=== PATIENT | male | born 1955 | race Caucasian/White ===

== ENCOUNTER 2024-10-01 00:31 | Inpatient (IN) | payer MEDICARE, MEDICAID, SELFPAY ==
[2024-10-01] VITALS (13 sets, daily range): BP systolic 97–120; BP diastolic 58–76; PULSE 78–104; RESP 14–20; TEMP 36.6–37.1; O2SAT 90–97; BMI 30.7
--- NOTE | 2024-10-01 02:19 | PD.EDRME ---
Rapid Medical Screening Exam RME Arrival date/time: 10/01/24 00:31 Chief Complaint: Abdominal Pain Time Seen by Provider: 10/01/24 01:52 Vital signs: Vital Signs Temperature 98.5 F 10/01/24 00:42 Pulse Rate 104 H 10/01/24 00:42 Respiratory Rate 20 10/01/24 00:42 Blood Pressure 110/73 10/01/24 00:42 Pulse Oximetry (%) 95 10/01/24 00:42 Oxygen Delivery Method Nasal Cannula 10/01/24 00:42 Oxygen Flow Rate 5 10/01/24 00:42 Vital signs reviewed by provider: Yes RME Narrative: 69-year-old male presents to the ED with a complaint of generalized abdominal pain for the past 4 days. He has also had associated diarrhea. He denies any fever or chills, vomiting, dysuria or frequency. He states he wants to vomit but is unable to. He has been afraid to eat for the past few days. He is also not taking any of his medications for newly diagnosed diabetes because he is not eating. He has been taking his blood sugar and it has been ranging from the high 80s to the high 120s. He has been told he has a hiatal hernia. Urinalysis and labs ordered. No imaging ordered at this time as the patient will be transferred to the main ED for evaluation and imaging studies can be ordered at that time. I have greeted and performed a focused initial assessment of this patient. A comprehensive ED assessment and evaluation of the patient, analysis of all test results, and completion of the medical decision making process will be conducted by additional ED providers.
[2024-10-01 02:42] LABS: Basophils # (Auto) 0.1 Thou/mm3 (0.0-0.2); Basophils % (Auto) 0 % (0-2.5); Eosinophils # (Auto) 0.1 Thou/mm3 (0.0-0.5); Eosinophils % (Auto) 0 % (0-10); Hematocrit 42.2 % (41.0-53.0); Hemoglobin 15.2 g/dL (13.5-16.0); Immature Granulocytes % (Auto) 1 % (0-0); Immature Granulocytes Auto 0.24 Thou/mm3 (0.00-0.00); Lymphocytes # (Auto) 0.9 Thou/mm3 (1.0-4.8); Lymphocytes % (Auto) 3 % (10-50); Mean Corpuscular Hemoglobin 35.8 pg (25.0-35.0); Mean Corpuscular Volume 100 fL (80-100); Monocytes # (Auto) 5.3 Thou/mm3 (0.0-0.8); Monocytes % (Auto) 18 % (0-12); Neutrophils # (Auto) 22.9 Thou/mm3 (1.8-7.7); Neutrophils % (Auto) 78 % (37-80); Nucleated Red Blood Cell % 0 /100 WBC (0); Platelet Count 231 Thou/mm3 (140-440); RDW Standard Deviation 52.6 fL (35.1-43.9); Red Blood Count 4.24 Miln/mm3 (4.50-5.90); White Blood Count 29.4 Thou/mm3 (3.8-10.6)
[2024-10-01 02:59] LABS: Alanine Aminotransferase 22 U/L (10-49); Albumin/Globulin Ratio 1.9 (1.2-2.2); Alkaline Phosphatase 135 U/L (46-116); Amylase 32 U/L (30-118); Anion Gap 9 (7-16); Aspartate Amino Transferase 26 U/L (0-34); BUN/Creatinine Ratio 16 Ratio (12-20); Blood Urea Nitrogen 27 mg/dL (9-23); Calcium 9.7 mg/dL (8.3-10.6); Calcium (Corrected) 9.7 mg/dL (8.5-10.1); Carbon Dioxide 25.3 mMol/L (20.0-31.0); Chloride 96 mMol/L (98-107); Creatinine (Component) 1.7 mg/dL (0.6-1.3); Estimated Creatinine Clearance 45.7 mL/min (>60); Globulin 2.7 gm/dL (2.3-3.5); Glucose 140 mg/dL (74-106); Lipase 29 U/L (12-53); Osmolality,Calculated 267 (275-295); Potassium 3.7 mMol/L (3.4-5.1); Sodium 130 mMol/L (136-145); Total Protein 7.7 gm/dL (5.7-8.2); eGFR 43 See Note
--- NOTE | 2024-10-01 03:24 | EKG_ITS ---
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
--- NOTE | 2024-10-01 03:24 | XR_ITS ---
Examination: AP chest single view TECHNIQUE: AP portable upright chest single view Exam date and time: October 01, 2024, 0442 hours Comparison 02/21/2024 INDICATIONS: Sepsis protocol FINDINGS: Normal heart size. No pneumonia or pulmonary edema. Right internal jugular Port-A-Cath tip SVC satisfactory position IMPRESSION: No pneumonia or pulmonary edema
--- NOTE | 2024-10-01 03:29 | XR_ITS ---
Examination: CT abdomen and pelvis without contrast. Coronal 3-D reconstructions. Sagittal 2-D reconstructions. Date and time of exam:October 01, 2024 0427 hours INDICATIONS: Onset abdominal pain today CTDI: vol (mGy): 9.95 DLP: (mGycm): 668 Technique: Axial images of the abdomen have been obtained, 3 mm slice thickness Intravenous contrast material has not been administered. Low dose protocols were performed. One or more of the following dose reduction techniques were used; automated exposure control, adjustment of the mA and/or KV according to patient size, use of iterative reconstruction technique. Findings: Diffuse fatty infiltration throughout the liver no focal liver or splenic lesions Distended gallbladder possible pericholecystic inflammatory change No pancreatic or adrenal mass Mild perinephric stranding, no hydronephrosis or renal calculi Abdominal aortic calcification no aneurysmal dilatation. The entire colon shows pericolonic inflammatory change No bowel obstruction No diverticulitis Normal seminal vesicles normal prostate size Intact urinary bladder Osseous structures intact IMPRESSION: Recommend hepatobiliary sonography follow-up to exclude cholecystitis Diffuse nonspecific colitis pattern
--- NOTE | 2024-10-01 03:35 | PD.EDADULT ---
ED General RME/HPI General Chief complaint: Abdominal Pain Stated complaint: UPPER ABD PAIN Time Seen by Provider: 10/01/24 01:52 Arrival date/time: 10/01/24 00:31 RME / HPI RME / HPI narrative: This patient is a 69-year-old male with past medical history of non-Hodgkin lymphoma completed 7 sessions of chemotherapy last was in November 2023 and still has a Port-A-Cath placed follows Dr. Stephen in [place], history of seizures on Keppra from last 6 months, hypertension, GERD with esophagitis, hiatal hernia, history of COPD,, hyperlipidemia, hypertension presented to the ER due to 4-day history of abdominal pain associated with diarrhea. Patient reported that he had chronic abdominal pain a few years ago when he was diagnosed with hiatal hernia and GERD however he started having worsening abdominal pain rated as 8 on 10 not related with the food intake associated with nausea and has been constantly achy in nature. He also reported to have some chills. He stated that he has 8-10 bowel movements mainly loose in consistency without blood. He reported that his pain is radiating to the back. Of note, patient reported that he recently started taking Rybelsus as he was diagnosed with diabetes. Patient met 2 out of 4 SIRS criteria with tachycardia and leukocytosis therefore sepsis alert was initiated. He denied any dysuria or frequency. Endorses to have some cough and mild shortness of breath with wheezing. He is on home oxygen around 3 L since chemotherapy sessions. He usually eats at home and had a food in a [place] restaurant a week ago. He reported that he take naproxen/some other pain medication for chronic low back pain. Vitals showed soft blood pressure 110/70, tachycardia 104, respiratory rate 20 and afebrile. He was saturating 95% on 5 L nasal cannula. Labs were significant for leukocytosis 29.4, hemoglobin stable at 15.2. Platelet count 231. Low sodium 130, chloride 96, potassium 3.7. Anion gap 9. ОЛЕГ with BUN 27 creatinine 1.7. GFR 43. Baseline creatinine 1.2 from 2023. Blood glucose 140. Liver enzymes unremarkable. Mildly elevated ALP. Lipase was negative. Lactic acid is 1.0 EKG showed sinus rhythm with QTc 382. CT abdomen showed moderate Pancolitis, possible acute cholecystitis. Thickening of gallbladder wall with pericholecystic fat stranding. Would need US liver and possible Sx consult if needed for further evaluation and pt will admitted for acute cholecytitis. he meets 2/4 SIRS criteria with possible sepsis related to acute cholecystits with elev procalcitonin, ОЛЕГ, leukocytosis, hyponatremia and hypochloremia.1 L bolus of LR was given and maintenance fluids LR at 75 cc were started. We ordered breathing treatment, levaquin renally dose due to allergy with penicilin, Flagyl, Dilaudid 1.5 mg x 1, Protonix 40 mg x 1. Sepsis labs including CBC, CMP, lactic acid, procalcitonin, coagulation panel, urine analysis, with urine electrolytes, urine microalbumin/creatinine ratio, blood culture ordered. PMH: As above PSH: Carpal tunnel surgery, Port-A-Cath placement a year ago Allergies: Penicillin drug reaction unknown occurred in childhood SH: Quit smoking 3 years ago. Drinks alcohol socially. No history of illicit drug use. Home medications: Atorvastatin, cetirizine, donepezil, fenofibrate, lisinopril?hydrochlorothiazide, naproxen, omeprazole, Kamla OROZCO complaint: Abdominal pain Onset (ago): day(s) (4) Location: abdomen Radiation: back Severity: moderate Severity scale (1-10): 9 Quality: aching and sharp Consistency: intermittent Associated symptoms: nausea/vomiting Related Data Home Medications ?Medication ?Instructions ?Recorded ?Confirmed atorvastatin 40 mg tablet 40 mg PO DAILY 09/29/22 09/29/22 cetirizine 10 mg tablet 10 mg PO DAILY 09/29/22 09/29/22 donepezil 10 mg tablet 10 mg PO DAILY 09/29/22 09/29/22 fenofibrate nanocrystallized 145 145 mg PO QDAY 09/29/22 09/29/22 mg tablet lisinopril 30 mg tablet 30 mg PO DAILY 09/29/22 09/29/22 naproxen 500 mg tablet 500 mg PO DAILY 09/29/22 09/29/22 omeprazole 40 mg capsule,delayed 40 mg PO DAILY 09/29/22 09/29/22 release Allergies Allergy/AdvReac Type Severity Reaction Status Date / Time Penicillins Allergy Severe Anaphylaxis Verified 10/01/24 00:33 codeine Allergy Gastrointestinal Verified 10/01/24 00:33 Upset Review of Systems Review of Systems Systems Reviewed: All systems reviewed, normal except as documented Past Medical History Past Medical History NEUROLOGIC: Positive Seizures CARDIAC: Positive Hypercholesterolemia and Hypertension RESPIRATORY: Positive Chronic Obstructive Pulmonary Disease (COPD) GASTROINTESTINAL: Positive Hiatal Hernia and Gastroesophageal Reflux Disease ENDOCRINE: Positive Diabetes Mellitus Type 2 HEMATOLOGIC: Positive Leukemia (Non-Hodgkin lymphoma) PSYCHO/SOCIAL: Positive Depression ED Exam Narrative Physical exam: GENERAL APPEARANCE: AxOx4, male in mild distress due to abdominal pain. HEENT: NC, AT. Dry mucous membrane. EOMI, clear conjunctiva, oropharynx clear. NECK: Supple without lymphadenopathy. No stiffness or restricted ROM. HEART: Sinus tachycardia with regular rhythm, normal S1/S2, no m/r/g LUNGS: CTAB, moving air well. Moderate wheezing heard on auscultation. ABDOMEN: Soft, epigastric tenderness with mild distention. Active bowel sounds heard. BACK: No CVAT, no obvious deformity. EXTREMITIES: Without cyanosis, clubbing or edema. NEUROLOGICAL: Grossly nonfocal. Alert and oriented, moving all 4 extremities. CN not formally tested but appear grossly intact. Observed to ambulate with normal gait. Skin: Warm and dry without any rash. Psych: Appropriate mood and affect Course Quality Measures none Orders Category Date Time Status Admit to Inpatient Status Routine Admission 10/01/24 05:27 Active Bedside Blood Glucose NOW Care 10/01/24 03:24 Active COVID-19 Screening Questionnaire NOW Care 10/01/24 05:28 Active Chief Scientific Officer Q4H START 00 Care 10/01/24 03:24 Active Decision to Admit X1 Care 10/01/24 05:28 Active EKG (ED ONLY) *Do not use* NOW Care 10/01/24 03:25 Completed IV [Insert IV] NOW Care 10/01/24 02:22 Active Insert IV NOW Care 10/01/24 03:24 Active NPO STAT Care 10/01/24 02:22 Active Strict Intake and Output Routine Care 10/01/24 03:[address] abdomen pelvis wo con Stat Exams 10/01/24 03:29 Taken EKG (ED Only) Stat Exams 10/01/24 03:24 Ordered US liver Stat Exams 10/01/24 05:28 Ordered US renal BI Stat Exams 10/01/24 03:46 Taken XR chest 1V SEPSIS PROTOCOL Stat Exams 10/01/24 03:24 Taken Amylase Stat Lab 10/01/24 02:28 Completed Blood Culture (Lab) Stat Lab 10/01/24 03:34 Received CBC Stat Lab 10/01/24 02:28 Completed CBC Stat Lab 10/01/24 03:34 Completed Comprehensive Metabolic Panel Stat Lab 10/01/24 02:28 Completed Electrolytes, Urine Random Stat Lab 10/01/24 03:45 Ordered Lactate (Lactic Acid) Stat Lab 10/01/24 03:34 Completed Lipase Stat Lab 10/01/24 02:28 Completed Mag [Magnesium] Routine Lab 10/01/24 03:34 Completed Microalbumin, Ur Rnd w Creat Stat Lab 10/01/24 03:45 Ordered Partial Thromboplastin Time Stat Lab 10/01/24 03:34 [address] Review Blood Smear Stat Lab 10/01/24 03:34 Completed Phosphorous Routine Lab 10/01/24 03:34 Completed Procalcitonin Stat Lab 10/01/24 03:34 Completed Prothrombin Time with INR Stat Lab 10/01/24 03:34 Completed Troponin I Routine Lab 10/01/24 04:56 Ordered Urinalysis Stat Lab 10/01/24 02:22 Ordered Urinalysis Stat Lab 10/01/24 03:24 Ordered Urine Culture Stat Lab 10/01/24 02:23 Ordered Urine Culture Stat Lab 10/01/24 03:24 Ordered Albuterol/Ipratr Rt Beata [Duoneb Rt Beata] Med 10/01/24 03:24 Discontinued 3 ml INH X1 ONE HYDROmorphone INJ [Dilaudid Inj] Med 10/01/24 03:27 Discontinued 1.5 mg IVP X1 ONE Levofloxacin/D5w 500 mg Ivpb [Levaquin Ivpb] Med 10/01/24 04:11 Discontinued 500 mg in 100 ml IV X1 Magnesium Sulfate 4 GM Ivpb [Magnesium Sulfate Ivpb] Med 10/01/24 04:57 Active 4 gm in 50 ml IV X1 Ondansetron Inj [Zofran Inj] Med 10/01/24 03:24 Discontinued 4 mg IV X1 ONE POT PHOS 15 mMol in NS 250 ML [Pot Phos 15 mMol in NS Med 10/01/24 04:58 Active 250 ml] 15 mmol in 250 ml IV X1 Pantoprazole Inj [Protonix Inj] Med 10/01/24 03:24 Discontinued 40 mg IVP X1 ONE Pharmacy Renal Dose Adjustment Med 10/01/24 04:11 Pending 1 each XX PRN PRN Ringers Lactated 1000 ml [Lactated Ringers] 1,000 ml Med 10/01/24 03:26 Active IV 75 mls/hr Ringers Lactated 1000 ml [Lactated Ringers] 1,000 ml Med 10/01/24 03:26 Discontinued IV 999 mls/hr Ringers Lactated 500 ml [Lactated Ringers] 500 ml Med 10/01/24 04:58 Discontinued IV 999 mls/hr cefTRIAXone/D5w 1gm IV premix [Rocephin/D5w 1gm IV Med 10/01/24 03:25 Discontinued premix] 50 ml IV X1 metroNIDAZOLE/NS 500 MG IVPB [Flagyl 500 mg IV] Med 10/01/24 03:25 Discontinued 500 mg in 100 ml IV X1 Oxygen Delivery NOW RT 10/01/24 03:24 Active Vital Signs Vital signs: Vital Signs Temperature 98.5 F 10/01/24 00:42 Pulse Rate 104 H 10/01/24 00:42 Respiratory Rate 20 10/01/24 00:42 Blood Pressure 110/73 10/01/24 00:42 Pulse Oximetry (%) 95 10/01/24 00:42 Oxygen Delivery Method Nasal Cannula 10/01/24 00:42 Oxygen Flow Rate 5 10/01/24 00:42 Discharge Plan Prescriptions/Referrals Prescriptions/Med Rec: No Action atorvastatin 40 mg tablet 40 mg PO DAILY Patient Comments: TAKE 1 TABLET BY MOUTH EVERY DAY cetirizine 10 mg tablet 10 mg PO DAILY Patient Comments: TAKE 1 TABLET BY MOUTH EVERY DAY NEEDED FOR SEASONAL ALLERGIES donepezil 10 mg tablet 10 mg PO DAILY Patient Comments: TAKE 1 TABLET BY MOUTH EVERY DAY IN THE EVENING FOR MEMORY LOSS omeprazole 40 mg capsule,delayed release(DR/EC) 40 mg PO DAILY Patient Comments: TAKE 1 CAPSULE BY MOUTH EVERY DAY BEFORE A MEAL lisinopril 30 mg tablet 30 mg PO DAILY Patient Comments: TAKE 1 TABLET BY MOUTH ONCE DAILY naproxen 500 mg tablet 500 mg PO DAILY Patient Comments: GENERIC FOR NAPROSYN... TAKE 1 TABLET BY MOUTH EVERY DAY WITH FOOD fenofibrate nanocrystallized 145 mg tablet 145 mg PO QDAY Patient Comments: TAKE 1 TABLET BY MOUTH EVERY DAY Referrals: Sydni Rodriguez [Primary Care Provider] - In 1 week Problem List Clinical Impression: Abdominal pain, Sepsis Patient/Caregiver Discharge Instructions Print Language: Belarusian MDM Medication Administration(s) Medication Administration History Lactated Ringer's (Lactated Ringers) 1,000 mls @ 75 mls/hr IV .[id number] JOHNATHON Stop: 10/31/24 03:25 Last Admin: 10/01/24 04:16 Dose: 75 mls/hr Documented By: EF Magnesium Sulfate (Magnesium Sulfate Ivpb) 4 gm in 50 mls @ 12.5 mls/hr IV X1 ONE Stop: 10/01/24 08:56 Potassium Phosphate (Pot Phos 15 Mmol In Ns 250 Ml) 15 mmol in 250 mls @ 62.5 mls/hr IV X1 ONE Stop: 10/01/24 08:57 Pharmacy Consult (Pharmacy Renal Dose Adjustment 1 Ea) 1 each XX PRN PRN PRN Reason: CONSULT Stop: 10/31/24 04:10 Discontinued Medications Albuterol/Ipratropium (Albuterol/Ipratropium (Duoneb) Rt Beata 3 Ml Nebu) 3 ml INH X1 ONE Stop: 10/01/24 03:25 Last Admin: 10/01/24 04:44 Dose: 3 ml Documented By: RAJ Hydromorphone HCl (Hydromorphone Inj 2 Mg/Ml Vial) 1.5 mg IVP X1 ONE Stop: 10/01/24 03:28 Last Admin: 10/01/24 04:14 Dose: 1.5 mg Documented By: EF Ceftriaxone Sodium/Dextrose (Rocephin/D5w 1gm Iv Premix) 50 mls @ 100 mls/hr IV X1 ONE Stop: 10/01/24 03:54 Metronidazole (Flagyl 500 Mg Iv) 500 mg in 100 mls @ 100 mls/hr IV X1 ONE Stop: 10/01/24 04:24 Last Admin: 10/01/24 04:14 Dose: 100 mls/hr Documented By: EF Lactated Ringer's (Lactated Ringers) 1,000 mls @ 999 mls/hr IV .Q1H1M ONE Stop: 10/01/24 04:26 Last Admin: 10/01/24 04:15 Dose: 999 mls/hr Documented By: EF Levofloxacin/Dextrose (Levaquin Ivpb) 500 mg in 100 mls @ 100 mls/hr IV X1 ONE Stop: 10/01/24 05:10 Lactated Ringer's (Lactated Ringers) 500 mls @ 999 mls/hr IV .Q31M ONE Stop: 10/01/24 05:28 Ondansetron HCl (Ondansetron Inj 2 Mg/Ml Inj 2 Ml) 4 mg IV X1 ONE; Protocol Stop: 10/01/24 03:25 Last Admin: 10/01/24 04:13 Dose: 4 mg Documented By: EF Pantoprazole Sodium (Pantoprazole Inj 40 Mg Vial) 40 mg IVP X1 ONE Stop: 10/01/24 03:25 Last Admin: 10/01/24 04:13 Dose: 40 mg Documented By: EF
--- NOTE | 2024-10-01 03:46 | XR_ITS ---
Examination: Retroperitoneal ultrasound, complete Technique: Multiple high resolution grayscale images of the retroperitoneum obtained, including kidneys and bladder. Exam date and time:October 01, 2024 0546 hours INDICATIONS: Acute renal insufficiency on laboratory examination today FINDINGS: Right kidney 9.9 cm cortex 1.5 cm Left kidney 10.1 cm cortex 1.9 cm no hydronephrosis or renal calculi. Contracted urinary bladder IMPRESSION: Bilateral renal cortical thinning No hydronephrosis or renal calculi
[2024-10-01 03:51] LABS: Basophils # (Auto) 0.1 Thou/mm3 (0.0-0.2); Basophils % (Auto) 0 % (0-2.5); Eosinophils % (Auto) 0 % (0-10); Hemoglobin 13.8 g/dL (13.5-16.0); Immature Granulocytes % (Auto) 1 % (0-0); Immature Granulocytes Auto 0.24 Thou/mm3 (0.00-0.00); Lymphocytes # (Auto) 0.7 Thou/mm3 (1.0-4.8); Lymphocytes % (Auto) 3 % (10-50); Mean Corpuscular HGB Conc 36.3 g/dl (31.0-37.0); Mean Corpuscular Hemoglobin 35.8 pg (25.0-35.0); Mean Corpuscular Volume 98 fL (80-100); Monocytes # (Auto) 4.7 Thou/mm3 (0.0-0.8); Monocytes % (Auto) 19 % (0-12); Neutrophils # (Auto) 19.2 Thou/mm3 (1.8-7.7); Neutrophils % (Auto) 77 % (37-80); Nucleated Red Blood Cell % 0 /100 WBC (0); Platelet Count 182 Thou/mm3 (140-440); RDW Standard Deviation 51.9 fL (35.1-43.9); Red Blood Count 3.86 Miln/mm3 (4.50-5.90); White Blood Count 24.8 Thou/mm3 (3.8-10.6)
[2024-10-01] MEDS: PANTOPRAZOLE INJ 40 MG VIAL IVP ×2 (04:13→08:40)
[2024-10-01] MEDS: ONDANSETRON INJ 2 MG/ML INJ 2 ML 4 MG IV ×2 (04:13→14:30)
[2024-10-01] MEDS: HYDROmorphone INJ 2 MG/ML VIAL 1.5 MG IVP (04:14)
[2024-10-01] MEDS: metroNIDAZOLE/NS 500 MG IVPB 500 MG/100 ML BAG 100 MG IV (04:14)
[2024-10-01] MEDS: RINGERS LACTATED 1000 ML 1,000 ML 999 ML IV (04:15)
[2024-10-01] MEDS: RINGERS LACTATED 1000 ML 1,000 ML 75 ML IV ×2 (04:16→17:29)
[2024-10-01 04:24] LABS: Path Review Blood Smear Sent to Pathologist
[2024-10-01] MEDS: ALBUTEROL/IPRATROPIUM (Duoneb) RT SOL 3 ML NEBU INH (04:44)
[2024-10-01 04:51] LABS: INR 1.1 (0.9-1.3); Partial Thromboplastin Time 24.1 Seconds (22.0-36.0)
[2024-10-01 04:54] LABS: Magnesium 1.4 mg/dL (1.6-2.6); Phosphorous 2.4 mg/dL (2.4-5.1)
[2024-10-01 05:02] LABS: Procalcitonin 0.55 ng/ml (0.0-0.49)
--- NOTE | 2024-10-01 05:08 | PRELIM_ITS ---
CT scan of the abdomen and pelvis without intravenous contrast (axial sections with sagittal and coronal reformats) October 01, 2024 0427 hours Clinical History: Abdominal pain. Comparison: No prior study is available for comparison. Findings: The lung bases are clear. The liver, pancreas, spleen, kidneys and adrenals are unremarkable on this noncontrast study. Gallbladder wall thickening. Pericholecystic fat stranding. Thickening of the colonic wall associated with peripheral fat stranding. No evidence of bowel obstruction. No evidence of appendicitis. There is no mesenteric or retroperitoneal adenopathy. The urinary bladder is nondistended, limited evaluation. There is no free fluid or free air. The osseous structures are unremarkable. Impression: Moderate pancolitis. Possible acute cholecystitis. Further evaluation is recommended. Report Electronically Signed By: Edil Ford 10/01/2024 5:08:13 AM [EST]
--- NOTE | 2024-10-01 05:28 | XR_ITS ---
Examination: Abdomen sonogram, Limited Date and time of exam: October 01, 2024 0742 hours INDICATIONS: Distended gallbladder on CT examination October 01, 2024, severe right upper abdominal pain beginning 2 days ago Technique: Real-time [place] scale transabdominal sonographic images of the upper abdomen obtained. Findings: Distended gallbladder 5 mm gallstone Gallbladder wall 0.5 cm with edema Common bile duct 0.7 cm Pancreas obscured by bowel gas Liver 20.2 cm, hypoechoic area adjacent to the gallbladder wall 5.8 x 1.7 x 3.6 cm which may represent focal fatty sparing IMPRESSION: Acute calculus cholecystitis, consider MRCP follow-up Probable focal fatty sparing as above but clinical correlation advised, liver parenchyma can be assessed with the MRCP follow-up as clinically warranted
--- NOTE | 2024-10-01 05:33 | PD.EVENT ---
Documentation for date of: 10/01/24 Event Note Event Note: A 69-year-old male presented to the ER with the chief complaint of abdominal pain. The patient described four days of worsening abdominal pain associated with poor oral intake, nausea, and frequent loose bowel movements (8?10 per day), without visible blood. The abdominal pain is constant, rated 8/10, achy in nature, radiating to the back, and not related to food intake. He also reported a gag reflex when attempting to eat, including an inability to finish even a small bowl of cereal. Stools were described as sudden in onset, requiring him to green to the bathroom. He endorsed feeling hot at night, requiring a wet cloth on his forehead and use of a fan to sleep, but denied chills. He also reported mild cough with occasional phlegm, mild shortness of breath, and significant unintentional weight loss since November 2023, from 240 lbs to 202 lbs. GI symptoms predated initiation of Rybelsus, which he recently began for type 2 DM. He was evaluated for abdominal discomfort in July 2024 with an EGD at an outside facility in [place], which revealed a hiatal hernia. He has chronic abdominal discomfort since his GERD/hernia diagnosis and reported transient symptom relief from warm lemon water advised by his DOCUMENT IMPROVEMENT SPECIALIST. Due to worsening symptoms, he came to the ER. The patient has a history of non-Hodgkin lymphoma (status post 7 rounds of chemotherapy, completed in November 2023), COPD on 3L home oxygen, seizures (on Keppra), HTN, GERD with esophagitis, hiatal hernia, DM, hyperlipidemia, and chronic low back pain. Surgical history includes carpal tunnel surgery and Port-A-Cath placement. Current medications include Atorvastatin, Cetirizine, Donepezil, Fenofibrate, Lisinopril?Hydrochlorothiazide, Naproxen, Omeprazole, Keppra, and Rybelsus. Social history includes former smoking (quit at age 66), social alcohol use, and no illicit drug use. Patient is retired and ambulatory. He lives with his , who is actively involved in his care. Allergy to penicillin with unclear reaction. In the ER, vital signs recorded as temp 98.5?F, HR 104 bpm, RR 20, BP 110/73 mmHg. Labs revealed WBC 24.8, Hgb 13.8, Plt 182, Na 130, K 3.7, Cl 96, BUN 27, Cr 1.7 (from baseline 1.2), eGFR 43, Mg 1.4, Phos 2.4, AST 26, ALT 22, Bilirubin 1.0, Lactic Acid 1.0, and procalcitonin 0.55. CT showed moderate pancolitis and possible acute cholecystitis. He is receiving IV fluids for dehydration. Sepsis alert was initiated due to leukocytosis and tachycardia. He is being admitted for further management. #Pancolitis #Sepsis #Possible acute cholecystitis Assessment: Moderate pancolitis on CT, persistent diarrhea (8?10 loose stools/day), abdominal pain radiating to back, weight loss, poor PO intake, low-grade systemic symptoms without overt fever, SIRS positive (HR 104, WBC 24.8), procalcitonin mildly elevated (0.55) Plan: - Continue IV fluid resuscitation to address dehydration and electrolyte imbalance - Send stool studies: C. difficile, stool cultures, ova and parasites, fecal leukocytes, fecal calprotectin - Hold Rybelsus - Advance diet as tolerated - Monitor abdominal exam and vital signs closely for signs of worsening or perforation - Initiate empiric antibiotics - Abdominal ultrasound to further evaluate gallbladder for cholecystitis #Acute Kidney Injury on CKD Assessment: Cr 1.7 (baseline 1.2), eGFR 43, likely pre-renal from volume depletion, Mg 1.4, BUN 27 Plan: - IV fluid rehydration to restore perfusion - Monitor renal function daily - Hold nephrotoxic agents - Monitor electrolytes and replete as needed - Consider nephrology consult if no improvement #Diabetes Mellitus Type 2 Assessment: Poor oral intake and dehydration; current Rybelsus use likely paused; glucose monitoring needed Plan: - Hold Rybelsus during acute illness - Initiate sliding scale insulin for inpatient glucose control - Monitor capillary blood glucose AC/HS; target preprandial <140 mg/dL, random <180 mg/dL #COPD Assessment: History of COPD on home O2, mild SOB and cough without significant hypoxia or wheezing on exam Plan: - Continue home O2 (3L) and monitor oxygen saturation - Supportive care and pulmonary hygiene #History of Non-Hodgkin Lymphoma (post-chemo November 2023) Assessment: Recent chemotherapy, at risk for immunosuppression; presenting with pancolitis and systemic symptoms Plan: - Neutrophil count monitoring and infection precautions - Outpatient f/u #Hypertension Assessment: Stable BP 110/73 on admission Plan: - Hold antihypertensives now - Resume as tolerated with improvement in hydration status #GERD with Hiatal Hernia Assessment: Chronic GERD with recent worsening of symptoms; recent EGD confirmed hiatal hernia Plan: - Continue PPI - Monitor for upper GI symptoms or bleeding
[2024-10-01] MEDS: RINGERS LACTATED 500 ML 500 ML 999 ML IV (05:42)
[2024-10-01] MEDS: LEVOFLOXACIN/D5W 500 MG IVPB 500 MG/100 ML BAG 100 MG IV (05:43)
--- NOTE | 2024-10-01 05:56 | PRELIM_ITS ---
Renal/Retroperitoneal ultrasound. October 01, 2024 at 0456 hours Clinical history: ОЛЕГ Technique: Duplex scan of the bilateral renal arterial and venous tree was performed utilizing 2D grayscale imaging, Doppler spectral analysis and color flow. Comparison: No prior study is available for comparison. Findings: Right and left kidneys are 9.9 and 10.1 cm long respectively. No mass hydronephrosis or renal calculi are seen bilaterally. The urinary bladder is decompressed and not visualized. Impression: Limited exam. No acute process. Report Electronically Signed By: Josafat Joe 10/01/2024 5:55:45 AM [EST]
--- NOTE | 2024-10-01 05:59 | PD.RESHP ---
Documentation for date of: 10/01/24 [facility] History of Present Illness Chief complaint: stomach pain and vomiting History of present illness: Fito Quintero 69 yr M non-Hodgkin lymphoma completed 7 sessions of chemotherapy last was in November 2023, on 3L home oxygen, hx siezures, HTN, GERD, COPD, HLD, new diagnosed T2DM who is presenting to ED due to abdominal pain and intractable vomiting since past few days. Patient stated that he has decreased appetite and only able to tolerate water this time. Eating light foods such as cereal or broth also causes some vomiting and nausea. He has no major changes in diet, no recent travel, no sick contacts. Recently diagnosed with type 2 diabetes about 1 month ago and was started on Rybelsus by PCP. Patient cannot recall when that Rybelsus was exactly started. Endorses 40 pound weight loss since starting chemo, subjective fever, 8-10 bowel movements mainly loose in consistency without blood. Most recent colonoscopy done about two yrs ago. He cannot recall impression but stated he should be on low fiber diet. Abdominal pain rated as 8 on 10 with no major releiving factors. In ED, blood pressure 110/73, tachycardic 104, afebrile, saturating 94% on 4 L O2. CBC shows leukocytosis 29, mild hyponatremia sodium 130, potassium 3.7, creatinine 1.7, glucose 140. Lactic acid 1.0, mag 1.4, Pro-Arvind slightly elevated 0.55. Liver enzymes unremarkable. Mildly elevated ALP. Lipase was negative. Renal ultrasound and chest x-ray official read pending. CT abdomen pelvis significant for cholecystitis and pancolitis.EKG showed sinus rhythm with QTc 382. Was given levaquin renally dose due to allergy with penicilin, Flagyl, Dilaudid 1.5 mg x 1, Protonix 40 mg x 1. Patient to be admitted for sepsis 2/2 acute cholecystitis and pancolitis with ОЛЕГ. PMH: As above PSH: Carpal tunnel surgery, Port-A-Cath placement a year ago Allergies: Penicillin drug reaction unknown occurred in childhood SH: Quit smoking 3 years ago. Drinks alcohol socially. No history of illicit drug use. Home medications: Atorvastatin, cetirizine, donepezil, fenofibrate, lisinopril?hydrochlorothiazide, naproxen, omeprazole, Rybelsus Review of Systems Review of Systems Systems Reviewed: All systems reviewed, normal except as documented Exam Vital Signs Temp Pulse Resp BP Pulse Ox O2 Del Method O2 Flow Rate 98.5 F 90 18 97/76 93 L Nasal Cannula 4 10/01/24 02:56 10/01/24 04:55 10/01/24 04:55 10/01/24 04:34 10/01/24 04:55 10/01/24 04:34 10/01/24 04:55 Narrative Exam General: Elderly male, distress from abdominal pain, cooperative HEENT: NCAT, No JVD noted. Mucosa dry. Pupils are equal and reactive to light bilaterally Cardiovascular: Normal S1 and S2. Regular rate and rhythm. Respiratory: Lungs are clear to auscultation bilaterally. No wheezing or crackles heard. Abdomen: Soft, diffuse tenderness, Eric's negative, distended, normal bowel sounds. Skin: Warm to touch, dry, no rashes noted Musculoskeletal: No gross injuries. Able to move all 4 extremities. No pitting edema Neuro: Alert and oriented x3. No focal neuro deficits. Psych: Normal affect and mood Results: Labs 10/01/24 03:34 10/01/24 02:28 Labs: Short CBC 10/01/24 10/01/24 Range/Units 02:28 03:34 WBC 29.4 H 24.8 H (3.8-10.6) Thou/mm3 Hgb 15.2 13.8 (13.5-16.0) g/dL Hct 42.2 38.0 L (41.0-53.0) % Plt Count 231 182 D (140-440) Thou/mm3 BMP 10/01/24 02:28 Sodium 130 L Potassium 3.7 Chloride 96 L Carbon Dioxide 25.3 BUN 27 H Creatinine 1.7 H Glucose 140 H Calcium 9.7 Liver Function 10/01/24 Range/Units 02:28 Total Bilirubin 1.0 (0.3-1.2) mg/dL AST 26 (0-34) U/L ALT 22 (10-49) U/L Alkaline Phosphatase 135 H (46-116) U/L Albumin 5.0 H (3.4-4.8) gm/dL Quality Measures Quality Measures none Advance care planning discussed with:: patient Medications Home Medications and Allergies Home Medications ?Medication ?Instructions ?Recorded ?Confirmed ?Type atorvastatin 40 mg tablet 40 mg PO DAILY 09/29/22 09/29/22 History cetirizine 10 mg tablet 10 mg PO DAILY 09/29/22 09/29/22 History donepezil 10 mg tablet 10 mg PO DAILY 09/29/22 09/29/22 History fenofibrate nanocrystallized 145 145 mg PO QDAY 09/29/22 09/29/22 History mg tablet lisinopril 30 mg tablet 30 mg PO DAILY 09/29/22 09/29/22 History naproxen 500 mg tablet 500 mg PO DAILY 09/29/22 09/29/22 History omeprazole 40 mg capsule,delayed 40 mg PO DAILY 09/29/22 09/29/22 History release Allergies Allergy/AdvReac Type Severity Reaction Status Date / Time Penicillins Allergy Severe Anaphylaxis Verified 10/01/24 00:33 codeine Allergy Gastrointestinal Verified 10/01/24 00:33 Upset Visit Medications Lactated Ringer's (Lactated Ringers) 1,000 mls @ 75 mls/hr IV .[id number] JOHNATHON Stop: 10/31/24 03:25 Last Admin: 10/01/24 04:16 Dose: 75 mls/hr Magnesium Sulfate (Magnesium Sulfate Ivpb) 4 gm in 50 mls @ 12.5 mls/hr IV X1 ONE Stop: 10/01/24 08:56 Potassium Phosphate (Pot Phos 15 Mmol In Ns 250 Ml) 15 mmol in 250 mls @ 62.5 mls/hr IV X1 ONE Stop: 10/01/24 08:57 Ciprofloxacin/Dextrose (Cipro Ivpb) 400 mg in 200 mls @ 200 mls/hr IV Q12HR JOHNATHON Stop: 10/08/24 05:29 Metronidazole (Flagyl 500 Mg Iv) 500 mg in 100 mls @ 200 mls/hr IV Q8HR JOHNATHON Stop: 10/08/24 05:29 Metronidazole (Flagyl 500 Mg Iv) 500 mg in 100 mls @ 200 mls/hr IV X1 ONE Stop: 10/01/24 06:14 Last Admin: 10/01/24 05:54 Dose: Not Given Pantoprazole Sodium (Pantoprazole Inj 40 Mg Vial) 40 mg IVP QDAY COUNTS INCLUDE 234 BEDS AT THE [facility] Stop: 10/31/24 08:59 Pharmacy Consult (Pharmacy Renal Dose Adjustment 1 Ea) 1 each XX PRN PRN PRN Reason: CONSULT Stop: 10/31/24 04:10 Discontinued Medications Albuterol/Ipratropium (Albuterol/Ipratropium (Duoneb) Rt Beata 3 Ml Nebu) 3 ml INH X1 ONE Stop: 10/01/24 03:25 Last Admin: 10/01/24 04:44 Dose: 3 ml Hydromorphone HCl (Hydromorphone Inj 2 Mg/Ml Vial) 1.5 mg IVP X1 ONE Stop: 10/01/24 03:28 Last Admin: 10/01/24 04:14 Dose: 1.5 mg Ceftriaxone Sodium/Dextrose (Rocephin/D5w 1gm Iv Premix) 50 mls @ 100 mls/hr IV X1 ONE Stop: 10/01/24 03:54 Metronidazole (Flagyl 500 Mg Iv) 500 mg in 100 mls @ 100 mls/hr IV X1 ONE Stop: 10/01/24 04:24 Last Admin: 10/01/24 04:14 Dose: 100 mls/hr Lactated Ringer's (Lactated Ringers) 1,000 mls @ 999 mls/hr IV .Q1H1M ONE Stop: 10/01/24 04:26 Last Admin: 10/01/24 04:15 Dose: 999 mls/hr Levofloxacin/Dextrose (Levaquin Ivpb) 500 mg in 100 mls @ 100 mls/hr IV X1 ONE Stop: 10/01/24 05:10 Last Admin: 10/01/24 05:43 Dose: 100 mls/hr Lactated Ringer's (Lactated Ringers) 500 mls @ 999 mls/hr IV .Q31M ONE Stop: 10/01/24 05:28 Last Admin: 10/01/24 05:42 Dose: 999 mls/hr Sodium Chloride (Ns) 1,000 mls @ 100 mls/hr IV Q10H JOHNATHON Stop: 10/31/24 05:29 Ondansetron HCl (Ondansetron Inj 2 Mg/Ml Inj 2 Ml) 4 mg IV X1 ONE; Protocol Stop: 10/01/24 03:25 Last Admin: 10/01/24 04:13 Dose: 4 mg Pantoprazole Sodium (Pantoprazole Inj 40 Mg Vial) 40 mg IVP X1 ONE Stop: 10/01/24 03:25 Last Admin: 10/01/24 04:13 Dose: 40 mg Assessment & Plan Plan Fito Leon 69 yr M non-Hodgkin lymphoma completed 7 sessions of chemotherapy last was in November 2023, on 3L home oxygen, hx siezures, HTN, GERD, COPD, HLD, new diagnosed T2DM who is presenting to ED due to abdominal pain and intractable vomiting since past few days. Patient to be admitted for sepsis 2/2 acute cholecystitis and pancolitis with ОЛЕГ. #Sepsis 2/2 acute cholecystitis, #Pancolitis #Intractable nausea and vomiting In ED, blood pressure 110/73, tachycardic 104, afebrile, saturating 94% on 4 L O2. SIRS 2/4, qSOFA 1. Lactic acid 1.0, Pro-Arvind slightly elevated 0.55. Liver enzymes unremarkable. CT abdomen pelvis significant for cholecystitis and pancolitis. Sepsis due to cholecystitis with acute sepsis-related organ dysfunction as evidence by ОЛЕГ. ? Patient received total of 2 L LR bolus. Continue LR maintenance 75 cc/h ? Ciprofloxacin 500 mg IV ? Metronidazole 500 mg 3 times daily ? Follow-up blood culture ? Stool studies including calprotectin, C. difficile, O&P, stool culture, stool WBC pending ? Urine culture pending ? NPO ? Liver u/s pending ? Day team to consider surgery consult ? Zofran #ОЛЕГ Most likely pre renal in setting of poor oral intake and sepsis. Cr 1.7 (baseline appears to be around 1.2), BUN 27. ? Maintenance fluids ? Avoid nephrotoxic agents ? Daily CMP #Electrolyte abnormalities #Hypomagnesia #Asymptomatic hyponatremia ? Repleted 4 g magnesium x 1 ? Daily CMP ? Daily Magnesium ? Continue fluids #Non insulin dependent type 2 diabetes Newly diagnosed about one month ago. On admission initial glucose 140. Last A1c 5.8 on 08/19. Patient takes Rybelsus for diabetes at home. ? Held home medications ? Bedside blood glucose checks ACHS ? Insulin lispro sliding scale ? Carb consistent low diet ? A1c pending #Hx HTN #Hx HLD #Hx seizure disorder #Hx Non Hodgkin Lymphoma on chemo #Hx COPD ? Med rec pending ? Follow up out patient for lymphoma ? Continue oxygen ? Duonebs PRN Health maintenance: Dispo: Cholecystitis, colitis FEN: NPO DVT prophylaxis: Subcu heparin CODE STATUS: Full code The patient's management plan was discussed with my attending physician Dr. Hicks. Yue Velasquez, PGY-1 Attending Provider Attestation/Addendum Pt was evaluated and plan formulated together with the housestaff team. I have reviewed the residents note above and agree with most of its content. Please refer to the residents note for additional details.
[2024-10-01] MEDS: Magnesium Sulfate 4 GM Ivpb 4 GM/50 ML BAG IV (06:01)
[2024-10-01 06:14] LABS: Troponin I < 0.020 ng/mL (0.0-0.045)
[2024-10-01 07:07] LABS: Glucose Estimated Average 128 mg/dL (80-131); Hemoglobin A1C 6.1 % Hgb (4.8-6.0)
--- NOTE | 2024-10-01 07:26 | PC.NURSE ---
notify Dr. Hernandez pt is receiving electrolytes recommended the use of a electronic device monitor. Per md he will put in orders shortly.
[2024-10-01 08:39] LABS: Collection Type, Urine Clean Catch
[2024-10-01 09:17] LABS: Bilirubin,Urine Negative (Negative); Blood,Urine Negative (Negative); Clarity,Urine Turbid (Clear/Hazy); Color,Urine Yellow (Lt Yel-Yel); Glucose, Urine Trace (Negative); Granular Casts,Urine 1 /hpf (0-1); Hyaline Casts,Urine 1 /hpf (0-1); Ketones,Urine Negative (Negative); Leukocyte Esterase,Urine Negative (Negative); Nitrite,Urine Negative (Negative); PH,Urine 5.5 (5.0-7.0); Protein,Urine 1+ (Neg - Trace); RBC,Urine < 1 /hpf (0-3); Specific Gravity,Urine 1.026 (1.001-1.035); Squamous Epithelial Cell,Urine 1 /hpf (0-5); Urobilinogen,Urine Negative mg/dL (0.0-1.0); WBC,Urine 4 /hpf (0-5)
[2024-10-01] MEDS: POT PHOS 15 mMol in NS 250 ML 15 MMOL/250 ML BAG 62.5 MMOL IV (09:18)
[2024-10-01 09:26] LABS: Chloride,Urine Random 38.4 mMol/L (55.0-125.0); Microalbumin, Random Urine 59 mg/L (0-300); Potassium,Urine Random 52 mMol/L (12-62); Sodium,Urine Random 15.4 mMol/L (20.0-110.0)
[2024-10-01 09:33] LABS: Creatinine MALB Rnd Ur 247 mg/dL (30-125); Microalbumin Creat Ratio 24 mg/gCrea (<30)
[2024-10-01 14:31] LABS: Stool for WBCs Moderate (Negative)
--- NOTE | 2024-10-01 14:52 | ESPR_ITS ---
Documentation for date of: 10/01/24 Subjective Subjective Interval history: 10/01/2024: Overnight admission for a 69-year-old male with past medical history of non-Hodgkin's lymphoma, COPD on 3 L, hypertension presenting with 4 days of abdominal pain associated with nausea and vomiting; moreover, patient found to have acute calculus cholecystitis along with pericolonic inflammation noted on CT. Patient seen and assessed in hospital bed reporting persistent abdominal pain which is mostly diffuse but more tender in the right upper quadrant. Patient had completed abdominal ultrasound which confirmed acute calculus cholecystitis. Patient continues to be on IV antibiotics for the pancolitis; moreover, general surgery consulted for possible cholecystectomy. Will continue monitor for any acute changes. Exam Vital Signs Temp Pulse Resp BP Pulse Ox O2 Del Method O2 Flow Rate 97.9 F 85 16 114/68 94 L Room Air 4 10/01/24 11:36 10/01/24 11:36 10/01/24 11:36 10/01/24 11:36 10/01/24 11:36 10/01/24 11:36 10/01/24 06:20 Narrative Exam General: Elderly male, distress from abdominal pain, cooperative HEENT: NCAT, No JVD noted. Mucosa dry. Pupils are equal and reactive to light bilaterally Cardiovascular: Normal S1 and S2. Regular rate and rhythm. Respiratory: Lungs are clear to auscultation bilaterally. No wheezing or crackles heard. Abdomen: Soft, diffuse tenderness, Eric's positive, distended, normal bowel sounds. Skin: Warm to touch, dry, no rashes noted Musculoskeletal: No gross injuries. Able to move all 4 extremities. No pitting edema Neuro: Alert and oriented x3. No focal neuro deficits. Psych: Normal affect and mood Objective Labs 10/04/24 05:28 10/04/24 05:28 Labs: Laboratory Results - last 24 hr 10/01/24 10/01/24 10/01/24 02:00 02:28 03:34 WBC 29.4 H 24.8 H RBC 4.24 L 3.86 L Hgb 15.2 13.8 Hct 42.2 38.0 L MCV 100 98 MCH 35.8 H 35.8 H MCHC 36.0 36.3 RDW Std Deviation 52.6 H 51.9 H Plt Count 231 182 D Neut % (Auto) 78 77 Lymph % (Auto) 3 L 3 L [place] % (Auto) 18 H 19 H Eos % (Auto) 0 0 Baso % (Auto) 0 0 Neut # (Auto) 22.9 H 19.2 H Lymph # (Auto) 0.9 L 0.7 L [place] # (Auto) 5.3 H 4.7 H Eos # (Auto) 0.1 0.0 Baso # (Auto) 0.1 0.1 Immature Gran # (Auto) 0.24 H 0.24 H Absolute Nucleated RBC 0.00 0.00 Immature Gran % 1 H 1 H Nucleated RBC % 0 0 Smear Path Review Sent to Pathologist PT 12.0 INR 1.1 APTT 24.1 Sodium 130 L Potassium 3.7 Chloride 96 L Carbon Dioxide 25.3 Anion Gap 9 BUN 27 H Creatinine 1.7 H Estim Creat Clear Calc 45.7 L eGFR 43 L BUN/Creatinine Ratio [address] Glu mg/dL 128 Hemoglobin A1c 6.1 H Calculated Osmolality 267 L Lactic Acid 1.0 Calcium 9.7 Corrected Calcium 9.7 Phosphorus 2.4 Magnesium 1.4 L Total Bilirubin 1.0 AST 26 ALT 22 Alkaline Phosphatase 135 H Troponin I < 0.020 Total Protein 7.7 Albumin 5.0 H Globulin 2.7 Albumin/Globulin Ratio 1.9 Amylase 32 Lipase 29 Procalcitonin 0.55 H Ur Collection Type Clean Catch Urine Color Yellow Urine Clarity Turbid A Urine pH 5.5 Ur Specific [place] 1.026 Urine Protein 1+ A Urine Glucose (UA) Trace Urine Ketones Negative Urine Blood Negative Urine Nitrite Negative Urine Bilirubin Negative Urine Urobilinogen (Auto) Negative Ur Leukocyte Esterase Negative Urine RBC < 1 Urine WBC 4 Ur Squamous Epith Cells 1 Urine Bacteria None Hyaline Casts 1 Granular Casts 1 Ur Random Microalbumin 59 Ur Random Sodium 15.4 L Ur Random Potassium 52 Ur Random Chloride 38.4 L U Creat (Microalbumin) 247 H Microalb/Creat Ratio 24 Stool for White Cells 10/01/24 10:45 WBC RBC Hgb Hct MCV MCH MCHC RDW Std Deviation Plt Count Neut % (Auto) Lymph % (Auto) [place] % (Auto) Eos % (Auto) Baso % (Auto) Neut # (Auto) Lymph # (Auto) [place] # (Auto) Eos # (Auto) Baso # (Auto) Immature Gran # (Auto) Absolute Nucleated RBC Immature Gran % Nucleated RBC % Smear Path Review PT INR APTT Sodium Potassium Chloride Carbon Dioxide Anion Gap BUN Creatinine Estim Creat Clear Calc eGFR BUN/Creatinine Ratio Glucose Estimated Ave Glu mg/dL Hemoglobin A1c Calculated Osmolality Lactic Acid Calcium Corrected Calcium Phosphorus Magnesium Total Bilirubin AST ALT Alkaline Phosphatase Troponin I Total Protein Albumin Globulin Albumin/Globulin Ratio Amylase Lipase Procalcitonin Ur Collection Type Urine Color Urine Clarity Urine pH Ur Specific [place] Urine Protein Urine Glucose (UA) Urine Ketones Urine Blood Urine Nitrite Urine Bilirubin Urine Urobilinogen (Auto) Ur Leukocyte Esterase Urine RBC Urine WBC Ur Squamous Epith Cells Urine Bacteria Hyaline Casts Granular Casts Ur Random Microalbumin Ur Random Sodium Ur Random Potassium Ur Random Chloride U Creat (Microalbumin) Microalb/Creat Ratio Stool for White Cells Moderate A Quality Measures Quality Measures none Advance care planning discussed with:: patient Assessment & Plan Assessment Current Active Medications: Generic Name Dose Route Start Last Admin Trade Name Freq PRN Reason Stop Dose Admin Albuterol/Ipratropium 3 ml 10/01/24 06:37 Albuterol/Ipratropium (Duoneb) Rt Beata 3 Ml Nebu INH 10/31/24 06:59 Q4HRRT PRN SHORTNESS OF BREATH Dextrose 25 ml 10/01/24 06:28 Dextrose 50%-Water Inj 50 Ml Syringe IV 10/31/24 06:27 Q15MIN PRN BG 50-70 responsive npo pt Dextrose 50 ml 10/01/24 06:28 Dextrose 50%-Water Inj 50 Ml Syringe IV 10/31/24 06:27 Q15MIN PRN BG <50 OR BG <70 & pt unresponsive Glucagon 1 mg 10/01/24 06:28 Glucagon Inj 1 Mg Vial IM Q15MIN PRN BG <70, and no IV access Heparin Sodium (Porcine) 5,000 unit 10/01/24 06:30 Heparin Sod Inj 5000 Unit/Ml Vial SC 10/15/24 06:29 Q8HR JOHNATHON Lactated Ringer's 1,000 mls @ 75 mls/hr 10/01/24 03:26 10/01/24 04:16 Lactated Ringers IV 10/31/24 03:25 75 mls/hr .[id number] JOHNATHON Administration Ciprofloxacin/Dextrose 400 mg in 200 mls @ 200 mls/hr 10/01/24 21:00 Cipro Ivpb IV 10/08/24 20:59 Q12HR JOHNATHON Metronidazole 500 mg in 100 mls @ 200 mls/hr 10/01/24 14:00 Flagyl 500 Mg Iv IV 10/08/24 13:59 Q8HR [facility] Insulin Human Lispro 0 unit 10/01/24 07:30 10/01/24 13:02 Insulin Lispro (Admelog) 1 Unit/0.01 Ml Unit SC 10/31/24 07:29 Not Given AC [facility] Protocol Ondansetron HCl 4 mg 10/01/24 07:14 Ondansetron Inj 2 Mg/Ml Inj 2 Ml IV 10/31/24 07:13 Q6HR PRN NAUSEA OR VOMITING Protocol Pantoprazole Sodium 40 mg 10/01/24 09:00 10/01/24 08:40 Pantoprazole Inj 40 Mg Vial IVP 10/31/24 08:59 40 mg QDAY JOHNATHON Administration Pharmacy Consult 1 each 10/01/24 04:11 Pharmacy Renal Dose Adjustment 1 Ea XX 10/31/24 04:10 PRN PRN CONSULT Plan 69 yr M non-Hodgkin lymphoma completed 7 sessions of chemotherapy last was in November 2023, on 3L home oxygen, hx siezures, HTN, GERD, COPD, HLD, new diagnosed T2DM who is presenting to ED due to abdominal pain and intractable vomiting since past few days. Patient to be admitted for sepsis 2/2 acute cholecystitis and pancolitis with ОЛЕГ. #Sepsis 2/2 acute cholecystitis, #Pancolitis #Intractable nausea and vomiting Patient presenting with 4 days of abdominal pain associated with nausea/vomiting/diarrhea In ED, blood pressure 110/73, tachycardic 104, afebrile, saturating 94% on 4 L O2. SIRS 2/4, qSOFA 1. Lactic acid 1.0, Pro-Arvind slightly elevated 0.55. Liver enzymes unremarkable. CT abdomen pelvis significant for cholecystitis and pancolitis. Sepsis due to cholecystitis with acute sepsis-related organ dysfunction as evidence by ОЛЕГ and elevated WBC (initially 29 now downtrending to 24.8) Liver ultrasound confirms acute calculus cholecystitis Plan: General Surgery consulted, appreciate recommendations Continue IV ciprofloxacin and IV Flagyl Follow-up blood culture Stool studies including calprotectin, C. difficile, O&P, stool culture, stool WBC pending Urine culture pending #Acute kidney injury on CKD stage II Most likely pre renal in setting of poor oral intake and sepsis. Cr 1.7 (baseline appears to be around 1.2), BUN 27 Ultrasound shows bilateral renal cortical thinning. No hydronephrosis or renal calculi Plan: Avoid nephrotoxic agents Renally dose medications when applicable Follow-up with morning labs #Non insulin dependent type 2 diabetes #Prediabetes Newly diagnosed about one month ago. On admission initial glucose 140. Last A1c 5.8 on 08/19. Patient takes Rybelsus for diabetes at home. A1c of 6.1 Plan: Sliding scale insulin #Hypertension #Hyperlipidemia #History of seizures #Hx Non Hodgkin Lymphoma on chemo #COPD Chronic medical conditions, not pertinent to the following presentation Plan: Pending official med rec, will start home medications Hospital Management: Dispo: Cholecystitis, colitis Lines: PIV FEN: NPO GI prophylaxis: Protonix DVT prophylaxis: Subcu heparin CODE STATUS: Full code Patient seen and assessed with attending Dr. Ligia Hernandez, PGY-1 Attending Provider Attestation/Addendum 69-year-old male with history of non-Hodgkin's lymphoma, COPD on 3 L supplemental oxygen presented with nausea and vomiting found to have sepsis secondary to acute cholecystitis and acute kidney injury. On IV antibiotic therapy pending surgical intervention.I reviewed above note and agree with findings and plans. I have also personally examined the patient with medicine team and went over assessment and plan with medical team including project management intern and resident physician.
--- NOTE | 2024-10-01 14:54 | XR_ITS ---
Examination: Nuclear medicine hepatobiliary scan, static HIDA scan Date of exam: October 02, 2024 0818 hours INDICATIONS: Onset abdominal pain intractable vomiting beginning several days ago, distended gallbladder with pericholecystic inflammatory change on CT abdomen October 01, 2024 Technique And Findings: 6.2 mCi 99m Hepatolite administered intravenously. Serial imaging obtained immediately through 60 minutes. Homogenous uptake in the liver. Common bile duct small bowel activity noted no gallbladder activity IMPRESSION: Abnormal study, cystic duct obstruction
[2024-10-01] MEDS: metroNIDAZOLE/NS 500 MG IVPB 500 MG/100 ML BAG 200 MG IV ×2 (14:59→21:01)
[2024-10-01] MEDS: HEPARIN SOD INJ 5000 UNIT/ML VIAL SC ×2 (15:08→21:02)
[2024-10-01 16:03] LABS: Clostridium Difficile PCR Negative (Negative)
--- NOTE | 2024-10-01 17:18 | PD.SURCONS ---
HPI Consult details Consult date: 10/01/24 Reason for consultation narrative: Check patient was seen in consultation because of diagnosis of acute cholecystitis History of present illness: History of present illness revealed that the patient has been having severe diarrhea for the past 4 and 5 days constantly not stopping. He also has diffuse abdominal pain and some vomiting. At the present time he is not vomiting but he is constantly going to the bathroom passing greenish stools. He denies any blood in the stools. His pain is all over the abdomen. He denies any history of fever or chills or jaundice. Patient's past medical history revealed that he had a history of lymphoma treated with chemotherapy hypertension and hyperlipidemia and an diabetes type 2 Past Medical History Past Medical History NEUROLOGIC: Positive Neurological Disorders, Seizures and Migraine CARDIAC: Positive Cardiac Disorders, Coronary Artery Disease, Hypercholesterolemia and Hypertension; Negative Congestive Heart Failure RESPIRATORY: Positive Chronic Obstructive Pulmonary Disease (COPD); Negative Asthma or Sleep Apnea GASTROINTESTINAL: Positive Gastrointestinal Disorders, Hiatal Hernia and Gastroesophageal Reflux Disease GENITOURINARY: Negative Genitourinary Disorders or Renal Disease MUSCULOSKELETAL: Positive Musculoskeletal Disorders, Arthritis and Carpal Tunnel Syndrome (RIGHT) ENDOCRINE: Positive Diabetes Mellitus Type 2; Negative Endocrine Disorders or Diabetes Mellitus Type 1 HEMATOLOGIC: Positive Leukemia PSYCHO/SOCIAL: Positive Depression and Anxiety OTHER HISTORY: Positive Chemotherapy and Cancer (Non-Hodgkin lymphoma); Negative Autoimmune Disease, Blood Transfusions or Anesthesia Reactions Social History SMOKING STATUS: Former smoker Meds Home Medications and Allergies Home Medications ?Medication ?Instructions ?Recorded ?Confirmed ?Type atorvastatin 40 mg tablet 40 mg PO DAILY 09/29/22 09/29/22 History cetirizine 10 mg tablet 10 mg PO DAILY 09/29/22 09/29/22 History donepezil 10 mg tablet 10 mg PO DAILY 09/29/22 10/01/24 History fenofibrate nanocrystallized 145 145 mg PO QDAY 09/29/22 10/01/24 History mg tablet lisinopril 30 mg tablet 30 mg PO DAILY 09/29/22 10/01/24 History Held on 10/01/24. Instructions: none naproxen 500 mg tablet 500 mg PO DAILY 09/29/22 09/29/22 History omeprazole 40 mg capsule,delayed 40 mg PO DAILY 09/29/22 10/01/24 History release famotidine 40 mg tablet 40 mg PO DAILY 10/01/24 10/01/24 History fexofenadine 180 mg tablet 180 mg PO Q24H PRN allergies 10/01/24 10/01/24 History (Allergy Relief (fexofenadine)) hydroxyzine HCl 10 mg tablet 10 mg PO Q8H PRN anxiety 10/01/24 10/01/24 History levetiracetam 500 mg tablet 500 mg PO Q12H 10/01/24 10/01/24 History lisinopril 20 1 tab PO DAILY 10/01/24 10/01/24 History mg-hydrochlorothiazide 25 mg tablet pantoprazole 40 mg tablet,delayed 40 mg PO DAILY 10/01/24 10/01/24 History release rosuvastatin 20 mg tablet 20 mg PO HS 10/01/24 10/01/24 History semaglutide 3 mg tablet (Rybelsus) 3 mg PO QDAY 10/01/24 10/01/24 History sumatriptan succinate 100 mg tablet 100 mg PO DAILY PRN migraine 10/01/24 10/01/24 History headache Allergies Allergy/AdvReac Type Severity Reaction Status Date / Time Penicillins Allergy Severe Anaphylaxis Verified 10/01/24 00:33 codeine Allergy Gastrointestinal Verified 10/01/24 00:33 Upset Exam Vital Signs Temp Pulse Resp BP Pulse Ox O2 Del Method O2 Flow Rate 97.9 F 78 16 111/58 L 94 L Nasal Cannula 3 10/01/24 15:38 10/01/24 15:38 10/01/24 15:38 10/01/24 15:38 10/01/24 15:38 10/01/24 15:38 10/01/24 15:38 Narrative Exam Physical examination revealed a slightly obese white male who is 5 foot 8 inches tall weighing 202 pounds. His vital signs are normal Routine Abdominal Exam Comments: Examination of the abdomen showed diffuse tenderness all over but mostly in the right upper quadrant. He is also complaining of pain over the lower abdomen. Bowel sounds are present Routine Rectal Exam Comments: Deferred Routine Exam Comments: Deferred Results Results: Laboratory Laboratory Narrative: Patient's laboratory workup showed significant leukocytosis with WBC of 25,000. Patient also has deteriorating renal functions with BUN of 27 and creatinine of 1.7. Results: Imaging Imaging narrative: CT scan of the abdomen showed gallbladder that is distended and ultrasound showed sludge and fluid around the gallbladder wall suggesting acute cholecystitis Assessment & Plan Additional Assessment Additional comments: Patient: Possible acute cholecystitis with sludge Diabetes mellitus Hypertension Uncontrolled diarrhea of unknown etiology Plan Plan: I have advised the HIDA scan to see if the cystic duct is obstructed. Gallbladder is very distended but his pain is all over the abdomen but not just over the right upper quadrant. Some of the severe diarrhea. The CT scan shows possible colitis. I have to ask the piper helper to evaluate this diarrhea. I will arrange for cholecystectomy if it is confirmed on the HIDA scan. Thank you very much
--- NOTE | 2024-10-01 18:27 | PC.NURSE ---
At [address] Dr. Zambrano gave verbal order to change pt admission status to med tele.
--- NOTE | 2024-10-01 19:15 | PC.NURSE ---
Dr. Brambila made aware of patients medication reconciliation, recommended to start patients medications.
[2024-10-01] MEDS: CIPROFLOXACIN/D5w 400 MG IVPB 400 MG/200 ML BAG 200 MG IV (20:49)
[2024-10-01] MEDS: HYDROmorphone INJ 2 MG/ML VIAL 0.5 MG IVP (21:20)
[2024-10-02] VITALS (15 sets, daily range): BP systolic 93–137; BP diastolic 63–90; PULSE 72–97; RESP 16–20; TEMP 36–36.6; O2SAT 20–97
[2024-10-02] MEDS: HYDROmorphone INJ 2 MG/ML VIAL 0.5 MG IVP ×3 (02:11→19:37)
[2024-10-02] MEDS: metroNIDAZOLE/NS 500 MG IVPB 500 MG/100 ML BAG 200 MG IV ×3 (06:08→22:03)
[2024-10-02] MEDS: HEPARIN SOD INJ 5000 UNIT/ML VIAL SC (06:08)
[2024-10-02 06:25] LABS: Basophils % (Auto) 0 % (0-2.5); Eosinophils # (Auto) 0.1 Thou/mm3 (0.0-0.5); Eosinophils % (Auto) 0 % (0-10); Hematocrit 33.3 % (41.0-53.0); Hemoglobin 11.6 g/dL (13.5-16.0); Immature Granulocytes % (Auto) 2 % (0-0); Immature Granulocytes Auto 0.17 Thou/mm3 (0.00-0.00); Lymphocytes # (Auto) 0.8 Thou/mm3 (1.0-4.8); Lymphocytes % (Auto) 7 % (10-50); Mean Corpuscular HGB Conc 34.8 g/dl (31.0-37.0); Mean Corpuscular Hemoglobin 35.9 pg (25.0-35.0); Mean Corpuscular Volume 103 fL (80-100); Monocytes # (Auto) 2.3 Thou/mm3 (0.0-0.8); Monocytes % (Auto) 21 % (0-12); Neutrophils % (Auto) 70 % (37-80); Nucleated Red Blood Cell % 0 /100 WBC (0); Platelet Count 172 Thou/mm3 (140-440); RDW Standard Deviation 53.3 fL (35.1-43.9); Red Blood Count 3.23 Miln/mm3 (4.50-5.90); White Blood Count 11.4 Thou/mm3 (3.8-10.6)
[2024-10-02 07:02] LABS: Alanine Aminotransferase 70 U/L (10-49); Albumin, Serum 3.6 gm/dL (3.4-4.8); Albumin/Globulin Ratio 1.9 (1.2-2.2); Alkaline Phosphatase 247 U/L (46-116); Anion Gap 7 (7-16); Aspartate Amino Transferase 74 U/L (0-34); BUN/Creatinine Ratio 13 Ratio (12-20); Bilirubin,Total 1.4 mg/dL (0.3-1.2); Blood Urea Nitrogen 13 mg/dL (9-23); Calcium 8.2 mg/dL (8.3-10.6); Calcium (Corrected) 8.5 mg/dL (8.5-10.1); Carbon Dioxide 27.6 mMol/L (20.0-31.0); Chloride 99 mMol/L (98-107); Estimated Creatinine Clearance 77.7 mL/min (>60); Globulin 1.9 gm/dL (2.3-3.5); Glucose 110 mg/dL (74-106); Osmolality,Calculated 269 (275-295); Potassium 3.5 mMol/L (3.4-5.1); Sodium 134 mMol/L (136-145); Total Protein 5.5 gm/dL (5.7-8.2); eGFR > 60 See Note
--- NOTE | 2024-10-02 08:20 | PC.NURSE ---
Patient transferred to [facility] in w/c, stable condition.
--- NOTE | 2024-10-02 09:50 | PC.NURSE ---
Report given to BUTCHER HEADRUFINA Moscoso.
--- NOTE | 2024-10-02 10:00 | PC.SS ---
SS attempted to meet with pt at bs to complete initial assessment pt is down in HIDA Scan. SS will reattempt at a later time.
--- NOTE | 2024-10-02 10:44 | ESPR_ITS ---
Documentation for date of: 10/02/24 Subjective Subjective Brief History: History of present illness revealed that the patient has been having severe diarrhea for the past 4 and 5 days constantly not stopping. He also has diffuse abdominal pain and some vomiting. At the present time he is not vomiting but he is constantly going to the bathroom passing greenish stools. He denies any blood in the stools. His pain is all over the abdomen. He denies any history of fever or chills or jaundice. Patient's past medical history revealed that he had a history of lymphoma treated with chemotherapy hypertension and hyperlipidemia and an diabetes type 2 Narrative: The patient is still having copious amounts of diarrhea. His abdominal pain has not changed and he is packing machine tender most of the abdomen but more so on the right upper quadrant Exam Vital Signs Temp Pulse Resp BP Pulse Ox O2 Del Method O2 Flow Rate 98 F 84 16 93/63 95 Room Air 3 10/02/24 08:00 10/02/24 10:27 10/02/24 10:27 10/02/24 08:00 10/02/24 10:27 10/02/24 08:00 10/02/24 00:00 His vital signs are normal Routine Abdominal Exam Comments: Abdominal examination shows increasing tenderness in the right upper quadrant compared to the other areas but no peritoneal signs Results Results: Laboratory Laboratory Narrative: Laboratory results show WBC down to 11,000. His liver enzymes are getting elevated gradually and mildly. His BUN/creatinine is normal Results: Imaging Imaging narrative: HIDA scan performed this morning showed cystic duct obstruction which confirms acute cholecystitis Assessment & Plan Assessment Additional comments: Impression: Acute cholecystitis Unexplained gastrointestinal symptoms like diarrhea Diabetes Plan Plan: I discussed with the patient that he will require laparoscopic cholecystectomy because gallbladder seems to be inflamed. He may or may not have a stone but he has some sludge on the ultrasound. Cholecystectomy will not relieve his diarrhea but he did feel most probably helped his abdominal pain. Patient was told about the laparoscopic approach and possible open ch olecystectomy if the laparoscopic approach shows difficulty in removing due to inflammation. Patient is agreeable and the procedure is planned today
[2024-10-02] MEDS: CIPROFLOXACIN/D5w 400 MG IVPB 400 MG/200 ML BAG 200 MG IV ×2 (10:59→20:50)
[2024-10-02] MEDS: PANTOPRAZOLE INJ 40 MG VIAL IVP (10:59)
[2024-10-02] MEDS: RINGERS LACTATED 1000 ML 1,000 ML 75 ML IV (11:02)
--- NOTE | 2024-10-02 12:05 | PC.NURSE ---
Patient to surgery via gurney in stable condition.
--- NOTE | 2024-10-02 13:18 | ESPR_ITS ---
Documentation for date of: 10/02/24 Subjective Subjective Interval history: 10/02/2024: No acute overnight events to report; however, patient's home medications restarted except for blood pressure medications as needed on the softer side. Patient seen and examined in hospital bed reportedly having bowel movements since admission and has persistent abdominal pain. General surgery recommended obtaining HIDA scan which confirmed initial diagnosis of acute calculus cholecystitis. Patient will have cholecystectomy with general surgery on 10/02/2024; moreover, will continue monitor for any acute changes and continue to treat with IV antibiotics. Exam Vital Signs Temp Pulse Resp BP Pulse Ox O2 Del Method O2 Flow Rate 97 F 72 18 113/72 94 L Room Air 3 10/02/24 12:00 10/02/24 12:00 10/02/24 12:00 10/02/24 12:00 10/02/24 12:00 10/02/24 12:00 10/02/24 00:00 Narrative Exam General: Elderly male, distress from abdominal pain, cooperative HEENT: NCAT, No JVD noted. Mucosa dry. Pupils are equal and reactive to light bilaterally Cardiovascular: Normal S1 and S2. Regular rate and rhythm. Respiratory: Lungs are clear to auscultation bilaterally. No wheezing or crackles heard. Abdomen: Soft, diffuse tenderness, Eric's positive, distended, normal bowel sounds. Skin: Warm to touch, dry, no rashes noted Musculoskeletal: No gross injuries. Able to move all 4 extremities. No pitting edema Neuro: Alert and oriented x3. No focal neuro deficits. Psych: Normal affect and mood Objective Labs 10/04/24 05:28 10/04/24 05:28 Labs: Laboratory Results - last 24 hr 10/01/24 10/02/24 10:45 05:34 WBC 11.4 H D RBC 3.23 L Hgb 11.6 L D Hct 33.3 L MCV 103 H MCH 35.9 H MCHC 34.8 RDW Std Deviation 53.3 H Plt Count 172 Neut % (Auto) 70 Lymph % (Auto) 7 L Braxton % (Auto) 21 H Eos % (Auto) 0 Baso % (Auto) 0 Neut # (Auto) 8.0 H Lymph # (Auto) 0.8 L Braxton # (Auto) 2.3 H Eos # (Auto) 0.1 Baso # (Auto) 0.0 Immature Gran # (Auto) 0.17 H Absolute Nucleated RBC 0.00 Immature Gran % 2 H Nucleated RBC % 0 Sodium 134 L Potassium 3.5 Chloride 99 Carbon Dioxide 27.6 Anion Gap 7 BUN 13 Creatinine 1.0 D Estim Creat Clear Calc 77.7 eGFR > 60 BUN/Creatinine Ratio 13 Glucose 110 H Calculated Osmolality 269 L Calcium 8.2 L D Corrected Calcium 8.5 Total Bilirubin 1.4 H AST 74 H ALT 70 H Alkaline Phosphatase 247 H D Total Protein 5.5 L Albumin 3.6 D Globulin 1.9 L Albumin/Globulin Ratio 1.9 Stool for White Cells Moderate A Stl C. diff Tox B Gene Negative Quality Measures Quality Measures none Advance care planning discussed with:: patient Assessment & Plan Assessment Current Active Medications: Generic Name Dose Route Start Last Admin Trade Name Freq PRN Reason Stop Dose Admin Albuterol/Ipratropium 3 ml 10/01/24 06:37 Albuterol/Ipratropium (Duoneb) Rt Beata 3 Ml Nebu INH 10/31/24 06:59 Q4HRRT PRN SHORTNESS OF BREATH Dextrose 25 ml 10/01/24 06:28 Dextrose 50%-Water Inj 50 Ml Syringe IV 10/31/24 06:27 Q15MIN PRN BG 50-70 responsive npo pt Dextrose 50 ml 10/01/24 06:28 Dextrose 50%-Water Inj 50 Ml Syringe IV 10/31/24 06:27 Q15MIN PRN BG <50 OR BG <70 & pt unresponsive Donepezil HCl 10 mg 10/02/24 09:00 10/02/24 10:08 Donepezil Hcl 5 Mg Tablet PO 11/01/24 08:59 Not Given DAILY JOHNATHON Fentanyl Citrate 25 mcg 10/02/24 12:50 Fentanyl Cit Inj 50 Mcg/Ml Amp 2ml IV 10/02/24 14:50 Q5M PRN PAIN SCALE 7-10 (Severe Protocol Fentanyl Citrate 25 mcg 10/02/24 12:50 Fentanyl Cit Inj 50 Mcg/Ml Amp 2ml IV 10/02/24 14:50 Q5M PRN PAIN SCALE 4-6 (Moderate Protocol Fentanyl Citrate 25 mcg 10/02/24 12:50 Fentanyl Cit Inj 50 Mcg/Ml Amp 2ml IV 10/02/24 14:50 Q5M PRN PAIN SCALE 1-3 (mild Protocol Glucagon 1 mg 10/01/24 06:28 Glucagon Inj 1 Mg Vial IM Q15MIN PRN BG <70, and no IV access Heparin Sodium (Porcine) 5,000 unit 10/01/24 06:30 10/02/24 06:08 Heparin Sod Inj 5000 Unit/Ml Vial SC 10/15/24 06:29 5,000 unit Q8HR JOHNATHON Administration Hydromorphone HCl 0.5 mg 10/01/24 17:36 10/02/24 02:11 Hydromorphone Inj 2 Mg/Ml Vial IVP 10/06/24 17:35 0.5 mg Q4HR PRN Administration severe pain 7-10 Hydroxyzine HCl 10 mg 10/02/24 06:23 Hydroxyzine Hcl 10 Mg Tablet PO 11/01/24 06:22 Q8H PRN anxiety Lactated Ringer's 1,000 mls @ 75 mls/hr 10/01/24 03:26 10/02/24 11:02 Lactated Ringers IV 10/31/24 03:25 75 mls/hr .[id number] JOHNATHON Administration Ciprofloxacin/Dextrose 400 mg in 200 mls @ 200 mls/hr 10/01/24 21:00 10/02/24 10:59 Cipro Ivpb IV 10/08/24 20:59 200 mls/hr Q12HR JOHNATHON Administration Metronidazole 500 mg in 100 mls @ 200 mls/hr 10/01/24 14:00 10/02/24 06:08 Flagyl 500 Mg Iv IV 10/08/24 13:59 200 mls/hr Q8HR JOHNATHON Administration Insulin Human Lispro 0 unit 10/02/24 12:00 10/02/24 11:16 Insulin Lispro (Admelog) 1 Unit/0.01 Ml Unit SC 11/01/24 11:59 Not Given Q6HR JOHNATHON Protocol Lactobacillus Rhamnosus 1 cap 10/02/24 11:00 10/02/24 11:00 Lactobacillus Rhamnosus 1 Cap PO 11/01/24 10:59 Not Given BID JOHNATHON Levetiracetam 500 mg 10/02/24 06:30 10/02/24 06:40 Levetiracetam 250 Mg Tablet PO 11/01/24 06:29 Not Given Q12HR JOHNATHON Ondansetron HCl 4 mg 10/01/24 07:14 10/01/24 14:30 Ondansetron Inj 2 Mg/Ml Inj 2 Ml IV 10/31/24 07:13 4 mg Q6HR PRN Administration NAUSEA OR VOMITING Protocol Pantoprazole Sodium 40 mg 10/01/24 09:00 10/02/24 10:59 Pantoprazole Inj 40 Mg Vial IVP 10/31/24 08:59 40 mg QDAY JOHNATHON Administration Pharmacy Consult 1 each 10/01/24 04:11 Pharmacy Renal Dose Adjustment 1 Ea XX 10/31/24 04:10 PRN PRN CONSULT Sumatriptan Succinate 100 mg 10/02/24 06:23 Sumatriptan 25 Mg Tablet PO 11/01/24 06:22 DAILY PRN migraine headache Plan 69 yr M non-Hodgkin lymphoma completed 7 sessions of chemotherapy last was in November 2023, on 3L home oxygen, hx siezures, HTN, GERD, COPD, HLD, new diagnosed T2DM who is presenting to ED due to abdominal pain and intractable vomiting since past few days. Patient to be admitted for sepsis 2/2 acute cholecystitis and pancolitis with ОЛЕГ. #Sepsis 2/2 acute cholecystitis #Pancolitis #Intractable nausea and vomiting Patient presenting with 4 days of abdominal pain associated with nausea/vomiting/diarrhea In ED, blood pressure 110/73, tachycardic 104, afebrile, saturating 94% on 4 L O2. SIRS 2/4, qSOFA 1. Lactic acid 1.0, Pro-Arvind slightly elevated 0.55. Liver enzymes unremarkable. CT abdomen pelvis significant for cholecystitis and pancolitis. Sepsis due to cholecystitis with acute sepsis-related organ dysfunction as evidence by ОЛЕГ and elevated WBC (initially 29 now downtrending to 24.8) Liver ultrasound confirms acute calculus cholecystitis Stool studies including calprotectin, C. difficile Stool WBC moderately positive Blood culture NG in 24 hours HIDA scan show abnormal study, cystic duct obstruction Plan: General Surgery consulted, appreciate recommendations Continue IV ciprofloxacin and IV Flagyl Stool culture and O&P pending Urine culture pending #Acute kidney injury on CKD stage II, improving Most likely pre renal in setting of poor oral intake and sepsis. Cr 1.7 (baseline appears to be around 1.2), BUN 27 Ultrasound shows bilateral renal cortical thinning. No hydronephrosis or renal calculi Plan: Avoid nephrotoxic agents Renally dose medications when applicable Follow-up with morning labs #Non insulin dependent type 2 diabetes #Prediabetes Newly diagnosed about one month ago. On admission initial glucose 140. Last A1c 5.8 on 08/19. Patient takes Rybelsus for diabetes at home. A1c of 6.1 Plan: Sliding scale insulin #Hypertension #Hyperlipidemia #History of seizures #Hx Non Hodgkin Lymphoma on chemo #COPD Chronic medical conditions, not pertinent to the following presentation Plan: Restarted home medications Hospital Management: Dispo: Cholecystitis, colitis Lines: PIV FEN: NPO GI prophylaxis: Protonix DVT prophylaxis: Subcu heparin CODE STATUS: Full code Patient seen and assessed with attending Dr. Ligia Hernandez, PGY-1 Attending Provider Attestation/Addendum 69-year-old male with history of non-Hodgkin's lymphoma, COPD on 3 L supplemental oxygen presented with nausea and vomiting found to have sepsis secondary to acute cholecystitis and acute kidney injury. On IV antibiotic therapy pending surgical intervention.I reviewed above note and agree with findings and plans. I have also personally examined the patient with medicine team and went over assessment and plan with medical team including contracts intern and resident physician.
--- NOTE | 2024-10-02 14:10 | ESOP_ITS ---
Date of Procedure 10/02/24 Pre Op Diagnosis Acute cholecystitis Post Op Diagnosis Same with extensive inflammation Procedure Laparoscopic cholecystectomy Findings Patient was found to have extremely distended gallbladder with no stones making surgery very difficult Procedure Description After endotracheal anesthesia was given the patient was placed in supine position and the abdomen was prepped with chloroprep solution and draped in a sterile manner. After time out was performed I injected a few cc of of half percent Marcaine with epinephrine below the umbilicus and I made an incision for about 3 cm in length. The fascia was cleaned and Veress needle was inserted to create a pneumoperitoneum up to 15 mmHg. Then introduced a 12 mm trocar and a 10 mm camera through the fascia and I inspected the intra-abdominal organs as well as the gallbladder and the liver. Another 5 mm trocar was inserted in the epigastric region under direct vision after injecting some local anesthesia. Patient was found to have extremely distended gallbladder covered with omentum. There were peeled off but there was some bleeding. Then I decompressed the gallbladder by using a needle and aspirated clean old bile. At this time the patient was kept in reverse Trendelenburg position with the left lateral tilt. The third 5 mm trocar was inserted over the mid axillary line under direct vision and a Favio and Gevan grasper was used to hold the fundus of the gallbladder. The retraction was carried out by the assistant professor of history moving the fundus of the gallbladder towards the right shoulder of the patient to create enough traction. I placed a another 5 mm trocar in the midaxillary line just lateral to the rectus muscle under direct vision. I used a fenestrated grasper to retract the neck of the gallbladder laterally towards the patient's right hip. The Calot's triangle was exposed and I achieved the critical view of safety as follows: I dissected out the fatty tissue from the hepatocystic triangle and cleared this area. I also dissected inferior and posterior to the gallbladder to identify the cystic duct and the gallbladder wall. Then superiorly I dissected along the cystic plate up to lower one third third of the gallbladder to lift the gallbladder from the liver. At this time I confirmed that only 2 structures entering the gallbladder were cystic artery and the cystic duct. The common duct was seen distally but no dissection was carried out around the duct. I did not see any need for operative cholangiogram in this patient. The cystic duct was clipped doubly and then divided and cystic artery was similarly dealt with. Then the gallbladder was removed from the liver bed using Harmonic prema to control the small blood vessels as the dissection proceeded. Then the gallbladder was from the liver bed completely and delivered through the umbilical port using an Endopouch. The liver bed was coagulated with cautery to obtain satisfactory hemostasis. The trocars were pulled out from the abdominal cavity and the fascia at the umbilical incision was closed with interrupted 0 Ethibond. Subcutaneous tissues was closed with 3-0 chromic and injected a few cc of half percent Marcaine with epinephrine and the skin was closed with interrupted 4-0 nylon stitches at all the trocar sites. Dressing was applied with 2 x 2 and Tegaderm. Patient tolerated the procedure well and returned to recovery room in stable condition. Anesthesia GETA Pathology / specimen Other (Gallbladder ) IVF Infused 1,000 Estimated Blood Loss 100 Condition Stable Disposition PACU Surgeon Norman Thacker MD Surgical Staff Operation Date: 10/02/24 12:45 Case Staff Anesthesiologist: Puneet Barrientos Assisting Surgeon: [email or web address]. ALMARAZseasoner hand: Karma Prieto
--- NOTE | 2024-10-02 14:15 | SUR.PHASEI ---
1415: Pt. AAOx4, vitals stable, breathing unlabored, no complaint of pain or nausea, x4 dressing to ABD CDI, no active bleed noted, report received from MD Barrientos and Ricki ALMARAZ.
[2024-10-02] MEDS: fentaNYL CIT INJ 50 mCg/ML AMP 2ML 25 MCG IV ×5 (14:22→14:54)
--- NOTE | 2024-10-02 15:05 | SUR.PHASEI ---
1505: Pt. AAOx4, vitals stable, breathing unlabored, complaint of pain, pain medication administered, educated pt. on gas pains, Pt. verbalized understanding, pt. tolerated sips of 7 up well, was able to pass flatus after drinking soda and pt. verbalized that it helped with the pain. x4 dressing to ABD CDI, no active bleed noted, gave report to Joan ALMARAZ prior to transfer to room 373.
[2024-10-02] MEDS: KETOROLAC INJ 30 MG/ML VIAL IVP (18:13)
[2024-10-02] MEDS: LACTOBACILLUS RHAMNOSUS 1 CAP PO (20:50)
[2024-10-02] MEDS: levETIRAcetam 250 MG TABLET 500 MG PO (20:50)
[2024-10-03] VITALS (9 sets, daily range): BP systolic 97–126; BP diastolic 53–81; PULSE 82–96; RESP 17–20; TEMP 36–36.5; O2SAT 89–98
[2024-10-03] MEDS: HYDROmorphone INJ 2 MG/ML VIAL 0.5 MG IVP ×4 (00:06→17:11)
[2024-10-03] MEDS: metroNIDAZOLE/NS 500 MG IVPB 500 MG/100 ML BAG 200 MG IV ×3 (05:24→22:51)
[2024-10-03 05:48] LABS: Basophils % (Auto) 0 % (0-2.5); Eosinophils % (Auto) 0 % (0-10); Hematocrit 30.6 % (41.0-53.0); Hemoglobin 10.7 g/dL (13.5-16.0); Immature Granulocytes % (Auto) 2 % (0-0); Lymphocytes # (Auto) 0.8 Thou/mm3 (1.0-4.8); Lymphocytes % (Auto) 5 % (10-50); Mean Corpuscular Hemoglobin 35.4 pg (25.0-35.0); Mean Corpuscular Volume 101 fL (80-100); Monocytes # (Auto) 2.8 Thou/mm3 (0.0-0.8); Monocytes % (Auto) 17 % (0-12); Neutrophils # (Auto) 12.7 Thou/mm3 (1.8-7.7); Neutrophils % (Auto) 76 % (37-80); Nucleated Red Blood Cell % 0 /100 WBC (0); Platelet Count 170 Thou/mm3 (140-440); RDW Standard Deviation 51.8 fL (35.1-43.9); Red Blood Count 3.02 Miln/mm3 (4.50-5.90); White Blood Count 16.8 Thou/mm3 (3.8-10.6)
[2024-10-03] MEDS: RINGERS LACTATED 1000 ML 1,000 ML 75 ML IV ×2 (06:12→22:51)
[2024-10-03 06:46] LABS: Alanine Aminotransferase 75 U/L (10-49); Albumin, Serum 3.4 gm/dL (3.4-4.8); Albumin/Globulin Ratio 1.9 (1.2-2.2); Alkaline Phosphatase 213 U/L (46-116); Anion Gap 6 (7-16); Aspartate Amino Transferase 67 U/L (0-34); BUN/Creatinine Ratio 13 Ratio (12-20); Blood Urea Nitrogen 12 mg/dL (9-23); Calcium 7.9 mg/dL (8.3-10.6); Calcium (Corrected) 8.4 mg/dL (8.5-10.1); Carbon Dioxide 26.7 mMol/L (20.0-31.0); Chloride 100 mMol/L (98-107); Creatinine (Component) 0.9 mg/dL (0.6-1.3); Estimated Creatinine Clearance 86.3 mL/min (>60); Globulin 1.8 gm/dL (2.3-3.5); Glucose 116 mg/dL (74-106); Magnesium 1.4 mg/dL (1.6-2.6); Osmolality,Calculated 267 (275-295); Potassium 3.6 mMol/L (3.4-5.1); Sodium 133 mMol/L (136-145); Total Protein 5.2 gm/dL (5.7-8.2); eGFR > 60 See Note
[2024-10-03] MEDS: CIPROFLOXACIN/D5w 400 MG IVPB 400 MG/200 ML BAG 200 MG IV ×2 (09:02→21:27)
[2024-10-03] MEDS: DONEPEZIL HCL 5 MG TABLET 10 MG PO (09:03)
[2024-10-03] MEDS: Magnesium Sulfate 4 GM Ivpb 4 GM/50 ML BAG IV (09:03)
[2024-10-03] MEDS: LACTOBACILLUS RHAMNOSUS 1 CAP PO ×2 (09:03→21:27)
[2024-10-03] MEDS: PANTOPRAZOLE INJ 40 MG VIAL IVP (09:03)
[2024-10-03] MEDS: levETIRAcetam 250 MG TABLET 500 MG PO ×2 (09:03→21:28)
[2024-10-03] MEDS: KETOROLAC INJ 30 MG/ML VIAL IVP (09:03)
--- NOTE | 2024-10-03 09:20 | PD.SURPROG ---
Documentation for date of: 10/03/24 Subjective Subjective Brief History: History of present illness revealed that the patient has been having severe diarrhea for the past 4 and 5 days constantly not stopping. He also has diffuse abdominal pain and some vomiting. At the present time he is not vomiting but he is constantly going to the bathroom passing greenish stools. He denies any blood in the stools. His pain is all over the abdomen. He denies any history of fever or chills or jaundice. Patient's past medical history revealed that he had a history of lymphoma treated with chemotherapy hypertension and hyperlipidemia and an diabetes type 2 Narrative: The patient's pain is better according to him. He is not had severe diarrhea and only once this morning. He is hungry Exam Vital Signs Temp Pulse Resp BP Pulse Ox O2 Del Method O2 Flow Rate 97.0 F 90 18 106/63 95 Nasal Cannula 2 10/03/24 08:00 10/03/24 08:00 10/03/24 08:00 10/03/24 08:00 10/03/24 08:00 10/03/24 08:00 10/03/24 08:00 Vital signs are normal other than mild tachycardia Routine Rectal Exam Comments: Surprisingly abdominal examination shows distention with tympany on palpation. Bowel sounds are hypoactive Results Results: Laboratory Laboratory Narrative: Laboratory results show normal hemoglobin and liver enzymes are trending down Assessment & Plan Assessment Additional comments: Impression: Stable postoperative course Postoperative ileus Plan Plan: We shall advance her diet because he wishes to eat. He will continue antibiotics and increase the mobilization. Procedures Procedures Laparoscopic cholecystectomy
[2024-10-03 12:11] LABS: Basophils % (Auto) 0 % (0-2.5); Eosinophils % (Auto) 0 % (0-10); Hematocrit 31.9 % (41.0-53.0); Hemoglobin 11.2 g/dL (13.5-16.0); Immature Granulocytes % (Auto) 4 % (0-0); Immature Granulocytes Auto 0.54 Thou/mm3 (0.00-0.00); Lymphocytes # (Auto) 0.8 Thou/mm3 (1.0-4.8); Lymphocytes % (Auto) 6 % (10-50); Mean Corpuscular HGB Conc 35.1 g/dl (31.0-37.0); Mean Corpuscular Hemoglobin 35.7 pg (25.0-35.0); Mean Corpuscular Volume 102 fL (80-100); Monocytes # (Auto) 2.5 Thou/mm3 (0.0-0.8); Monocytes % (Auto) 18 % (0-12); Neutrophils # (Auto) 10.1 Thou/mm3 (1.8-7.7); Neutrophils % (Auto) 72 % (37-80); Nucleated Red Blood Cell % 0 /100 WBC (0); Platelet Count 201 Thou/mm3 (140-440); RDW Standard Deviation 52.5 fL (35.1-43.9); Red Blood Count 3.14 Miln/mm3 (4.50-5.90)
--- NOTE | 2024-10-03 13:48 | ESDS_ITS ---
<Statement entered by Kishan Raymundo MD - 10/03/24 18:36> Patient was examined with the team including attending physician. Note reviewed, I agree with the discharge plan as documented. - Kishan Raymundo MD PGY2 Disclaimer: The document may contain phonetic/typographic errors due to voice recognition software. These errors are purely due to imperfections in the software program and should not be misconstrued in any way to compromise the substance of the patient's medical care during this visit. Planned Discharge Date 10/03/24 DS: Providers Provider Date of admission: 10/01/24 05:27 Primary care physician: Sydni Rodriguez Admitting Provider: North Hicks MD Attending Provider on Admission: Deedee Strong MD Consults: 10/01/24 14:08 Consult to General Surgery Routine Comment: acute calculous cholecystitis Consulting Provider: Norman Thacker 10/03/24 09:22 Referral Physical Therapy Routine Comment: Physician Instructions: Instructions: For ambulation Attending Provider on DC: Yan Hernandez MD Discharging Provider: Yan Hernandez MD DS: Diagnosis Problem List Completed Was Problem List Reviewed/Reconciled?: Yes Hospital Course Hospital Course Hospital course: 69-year-old male with past medical history of non-Hodgkin lymphoma, COPD on 3 L home oxygen use, hypertension, GERD, hyperlipidemia presented to the ED on 10/01/2024 with diffuse abdominal pain and intractable vomiting. In the ED, patient was normotensive, tachycardic, afebrile and saturating 94% on 4 L. Per tinent lab findings included creatinine of 1.7, lactic acid 1.0, Pro-Arvind slightly elevated at 0.55. Renal ultrasound and chest x-ray were unremarkable, CT abdomen pelvis showed possible cholecystitis and pancolitis. EKG showed sinus rhythm. Patient had a liver ultrasound which showed acute calculus cholecystitis and a follow-up MRCP was ordered which confirmed the study. Patient had a laparoscopic cholecystectomy on 10/02 without any acute complications noted postoperatively. Patient tolerated the procedure very well and symptoms drastically improved. Patient will be discharged from the hospital with the following strict instructions. Please take acetaminophen 650 mg tablet by mouth every 8 hours as needed for pain Please take Culturelle (probiotics) daily for gut health Follow-up with your PCP within 1 week If your symptoms worsen or if you develop new fever/chills, chest pain, shortness of breath, diarrhea or abdominal pain - please come back to the ED immediately. Hospital Diagnosis: #Acute cholecystitis, s/p laprascopic cholecystectomy #Pancolitis #Intractable nausea and vomiting #Acute kidney injury on CKD stage II, improving #Non insulin dependent type 2 diabetes #Prediabetes #Hypertension #Hyperlipidemia #History of seizures #Hx Non Hodgkin Lymphoma on chemo #COPD Yan Hernandez, PGY-1 Status at Discharge Overall status at discharge: patient is progressing back to baseline Time Spent with Patient Time attestation: Total time spent providing and/or coordinating discharge services: 45 minutes Time spent: Greater than 30 minutes Exam Vital Signs Temp Pulse Resp BP Pulse Ox O2 Del Method O2 Flow Rate 96.8 F 88 17 117/69 95 Room Air 2 10/03/24 12:00 10/03/24 13:00 10/03/24 12:00 10/03/24 12:00 10/03/24 12:00 10/03/24 12:10/03/24 08:00 Narrative Exam General: Elderly male, distress from abdominal pain, cooperative HEENT: NCAT, No JVD noted. Mucosa dry. Pupils are equal and reactive to light bilaterally Cardiovascular: Normal S1 and S2. Regular rate and rhythm. Respiratory: Lungs are clear to auscultation bilaterally. No wheezing or crackles heard. Abdomen: Soft, diffuse tenderness, Eric's positive, distended, normal bowel sounds. Skin: Warm to touch, dry, no rashes noted Musculoskeletal: No gross injuries. Able to move all 4 extremities. No pitting edema Neuro: Alert and oriented x3. No focal neuro deficits. Psych: Normal affect and mood Discharge Plan Plan Patient Disposition: HOME (Self Care) Patient condition on transfer: Stable Care Plan Goals: Please take acetaminophen 650 mg tablet by mouth every 8 hours as needed for pain Please take Culturelle (probiotics) daily for gut health Follow-up with your PCP within 1 week If your symptoms worsen or if you develop new fever/chills, chest pain, shortness of breath, diarrhea or abdominal pain - please come back to the ED immediately. Prescriptions/Referrals Prescriptions/Med Rec: New Culturelle 10 billion cell Capsule 1 cap PO BID 30 Days Qty: 60 0RF acetaminophen 650 mg tablet extended release 650 mg PO Q8H MDD 2000mg acetaminophen PRN (Reason: pain) 7 Days Qty: 20 0RF Continued atorvastatin 40 mg tablet 40 mg PO DAILY Patient Comments: TAKE 1 TABLET BY MOUTH EVERY DAY cetirizine 10 mg tablet 10 mg PO DAILY Patient Comments: TAKE 1 TABLET BY MOUTH EVERY DAY NEEDED FOR SEASONAL ALLERGIES donepezil 10 mg tablet 10 mg PO DAILY Patient Comments: TAKE 1 TABLET BY MOUTH EVERY DAY IN THE EVENING FOR MEMORY LOSS omeprazole 40 mg capsule,delayed release(DR/EC) 40 mg PO DAILY Patient Comments: TAKE 1 CAPSULE BY MOUTH EVERY DAY BEFORE A MEAL lisinopril 30 mg tablet 30 mg PO DAILY Patient Comments: TAKE 1 TABLET BY MOUTH ONCE DAILY naproxen 500 mg tablet 500 mg PO DAILY Patient Comments: GENERIC FOR NAPROSYN... TAKE 1 TABLET BY MOUTH EVERY DAY WITH FOOD fenofibrate nanocrystallized 145 mg tablet 145 mg PO QDAY Patient Comments: TAKE 1 TABLET BY MOUTH EVERY DAY pantoprazole 40 mg tablet,delayed release (DR/EC) 40 mg PO DAILY Patient Comments: TAKE 1 TABLET BY MOUTH EVERY DAY sumatriptan succinate 100 mg tablet 100 mg PO DAILY PRN (Reason: migraine headache) Patient Comments: TAKE 1 TABLET BY MOUTH AT ONSET OF MIGRAINE. MAY REPEAT AFTER 2 HOURS IF HEADACHE CONTINUES. MAX 2 PER DAY hydroxyzine HCl 10 mg tablet 10 mg PO Q8H PRN (Reason: anxiety ) Patient Comments: TAKE 1 TABLET BY MOUTH EVERY 8 HOURS NEEDED FOR ANXIETY fexofenadine [Allergy Relief (fexofenadine)] 180 mg tablet 180 mg PO Q24H PRN (Reason: allergies) Patient Comments: TAKE 1 TABLET BY MOUTH EVERY DAY NEEDED FOR SEASONAL ALLERGIES lisinopril-hydrochlorothiazide 20-25 mg tablet 1 tab PO DAILY Patient Comments: TAKE 1 TABLET BY MOUTH EVERY DAY famotidine 40 mg tablet 40 mg PO DAILY Patient Comments: TAKE 1 TABLET BY MOUTH EVERY DAY AT BEDTIME levetiracetam 500 mg tablet 500 mg PO Q12H Patient Comments: TAKE 1 TABLET BY MOUTH TWICE DAILY Rybelsus 3 mg tablet 3 mg PO QDAY rosuvastatin 20 mg tablet 20 mg PO HS Patient Comments: TAKE 1 TABLET BY MOUTH EVERY NIGHT AT BEDTIME Referrals: Sydni Rodriguez [Primary Care Provider] - Patient/Caregiver Discharge Instructions Other Discharge Diet Instructions: 1. Initially, limit fat intake to 30% of daily calories and avoid foods that are high in saturated fat. This is because the gallbladder stores bile, which helps digest fats, and its removal can make digesting fats more challenging. 2. Incorporate lean protein sources like skinless poultry (chicken/turkey), fish, tofu, beans, and lentils. 3. Instead of three large meals, consider eating four to six smaller meals to aid digestion. 4. Gradually increase fiber intake, starting with soluble fiber sources like oatmeal, barley, and fruits, as this can help with digestion and bowel regularity. 5. Limit or avoid high-fat foods, fried foods, spicy foods, caffeinated drinks, alcoholic beverages, and foods that cause digestive discomfort before the surgery. Education Materials: Preventing Surgical Site Infections Print Language: Argentine Stand Alone Forms: Shirley Award Info., Patient Portal Info Letter Quality Discharge Quality Measures VTE prophylaxis MD Attestestation MD Attestation 69-year-old male with history of non-Hodgkin's lymphoma, COPD on 3 L supplemental oxygen presented with nausea and vomiting found to have sepsis secondary to acute cholecystitis and acute kidney injury. As of now, patient underwent cholecystectomy and appears to be stable.. I have also personally examined the patient with medicine team and went over assessment and plan with medical team including inclusion intern and resident physician.
--- NOTE | 2024-10-03 15:53 | PC.SS ---
SS met with patient who is alert/oriented. Patient was able to verify demographics. Patient admitted for ОЛЕГ. Patient resides with . Patient states he's independent with ADL's. Patient uses [facility] ([facility] PCP: Dr. Rodriguez. Last appt. was in August. [facility]acy: [facility] D/c plan is to return home. Patient's alt medical decision maker: jennifer Anderson,
[2024-10-03] MEDS: ALBUTEROL/IPRATROPIUM (Duoneb) RT SOL 3 ML NEBU INH (19:51)
[2024-10-04] VITALS (9 sets, daily range): BP systolic 91–128; BP diastolic 54–83; PULSE 79–102; RESP 18–20; TEMP 36.1–36.6; O2SAT 91–97
[2024-10-04] MEDS: metroNIDAZOLE/NS 500 MG IVPB 500 MG/100 ML BAG 200 MG IV ×3 (05:11→22:20)
[2024-10-04] MEDS: guaiFENesin/DM TABLET 1 EACH PO ×2 (05:21→17:41)
--- NOTE | 2024-10-04 05:30 | PC.NURSE ---
called Dr. Velasquez regarding patient having cough that is productive of clear mucus, lung sounds are clear but diminished. Also let doctor know patient's abdomen is distended and tender, patient is post op lap abeba and has bruising near one of lap sites. Also let doctor know urine is dark hannah in color.
[2024-10-04 06:16] LABS: Basophils # (Auto) 0.1 Thou/mm3 (0.0-0.2); Basophils % (Auto) 0 % (0-2.5); Eosinophils # (Auto) 0.2 Thou/mm3 (0.0-0.5); Eosinophils % (Auto) 1 % (0-10); Hematocrit 31.1 % (41.0-53.0); Hemoglobin 10.6 g/dL (13.5-16.0); Immature Granulocytes % (Auto) 6 % (0-0); Immature Granulocytes Auto 1.04 Thou/mm3 (0.00-0.00); Lymphocytes % (Auto) 6 % (10-50); Mean Corpuscular HGB Conc 34.1 g/dl (31.0-37.0); Mean Corpuscular Hemoglobin 35.3 pg (25.0-35.0); Mean Corpuscular Volume 104 fL (80-100); Monocytes # (Auto) 2.3 Thou/mm3 (0.0-0.8); Monocytes % (Auto) 13 % (0-12); Neutrophils % (Auto) 74 % (37-80); Nucleated Red Blood Cell % 0 /100 WBC (0); Platelet Count 196 Thou/mm3 (140-440); RDW Standard Deviation 54.2 fL (35.1-43.9); White Blood Count 17.5 Thou/mm3 (3.8-10.6)
[2024-10-04 07:04] LABS: Alanine Aminotransferase 54 U/L (10-49); Albumin, Serum 3.3 gm/dL (3.4-4.8); Albumin/Globulin Ratio 1.9 (1.2-2.2); Alkaline Phosphatase 182 U/L (46-116); Anion Gap 7 (7-16); Aspartate Amino Transferase 40 U/L (0-34); BUN/Creatinine Ratio 14 Ratio (12-20); Bilirubin,Total 0.7 mg/dL (0.3-1.2); Blood Urea Nitrogen 11 mg/dL (9-23); Calcium 7.8 mg/dL (8.3-10.6); Calcium (Corrected) 8.4 mg/dL (8.5-10.1); Carbon Dioxide 26.2 mMol/L (20.0-31.0); Chloride 101 mMol/L (98-107); Creatinine (Component) 0.8 mg/dL (0.6-1.3); Estimated Creatinine Clearance 97.1 mL/min (>60); Globulin 1.7 gm/dL (2.3-3.5); Glucose 116 mg/dL (74-106); Osmolality,Calculated 268 (275-295); Potassium 3.4 mMol/L (3.4-5.1); Sodium 134 mMol/L (136-145); eGFR > 60 See Note
--- NOTE | 2024-10-04 07:52 | XR_ITS ---
Examination: Abdominal series 3 views including upright PA chest TECHNIQUE: Upright PA chest AP upright AP supine abdomen 3 views Exam date and time: September 2024 0918 hours INDICATIONS: Abdominal pain recent gallbladder procedure FINDINGS: Mild pneumonia left base Mild colonic ileus Surgical clips upper right abdomen No free air IMPRESSION: Mild colonic ileus
--- NOTE | 2024-10-04 07:59 | PC.NURSE ---
pt's abdomen distended, pain, and redness to LLQ abdomen. Dr. Riddle made aware. orders received read back, and carried out.
--- NOTE | 2024-10-04 08:10 | PC.NURSE ---
pt alert and oriented, transfer to xray department, via wheelchair accompanied by Machelle WILKERSON.
--- NOTE | 2024-10-04 08:29 | PC.NURSE ---
Pt back from Xray at this time, his in room alert and oriented.
[2024-10-04] MEDS: PANTOPRAZOLE INJ 40 MG VIAL IVP (08:47)
[2024-10-04] MEDS: LACTOBACILLUS RHAMNOSUS 1 CAP PO ×2 (08:47→20:48)
[2024-10-04] MEDS: HYDROmorphone INJ 2 MG/ML VIAL 0.5 MG IVP ×2 (08:47→16:11)
[2024-10-04] MEDS: CIPROFLOXACIN/D5w 400 MG IVPB 400 MG/200 ML BAG 200 MG IV ×2 (08:48→20:50)
[2024-10-04] MEDS: levETIRAcetam 250 MG TABLET 500 MG PO ×2 (08:48→20:48)
[2024-10-04] MEDS: DONEPEZIL HCL 5 MG TABLET 10 MG PO (08:48)
[2024-10-04] MEDS: POTASSIUM CHLORIDE 20 mEq TABCR 40 MEQ PO (09:09)
[2024-10-04 09:22] LABS: Magnesium 1.4 mg/dL (1.6-2.6)
--- NOTE | 2024-10-04 10:34 | PD.SURPROG ---
Documentation for date of: 10/04/24 Subjective Subjective Brief History: History of present illness revealed that the patient has been having severe diarrhea for the past 4 and 5 days constantly not stopping. He also has diffuse abdominal pain and some vomiting. At the present time he is not vomiting but he is constantly going to the bathroom passing greenish stools. He denies any blood in the stools. His pain is all over the abdomen. He denies any history of fever or chills or jaundice. Patient's past medical history revealed that he had a history of lymphoma treated with chemotherapy hypertension and hyperlipidemia and an diabetes type 2 Narrative: The patient is complaining of some abdominal distention and pain. She has ecchymosis over the lower abdomen on the left. He is tolerating diet and having bowel movements Exam Vital Signs Temp Pulse Resp BP Pulse Ox O2 Del Method O2 Flow Rate 97.2 F 89 20 128/69 95 Nasal Cannula 3 10/04/24 07:49 10/04/24 07:49 10/04/24 07:49 10/04/24 07:49 10/04/24 07:49 10/04/24 07:49 10/04/24 07:49 Vital signs are normal Routine Abdominal Exam Comments: Abdominal examination showed diminished bowel sounds and mild distention. The ecchymosis on the left side is probably due to surgery Results Results: Laboratory Laboratory Narrative: Laboratory results show WBC to be around 17,000 which is higher Results: Imaging Imaging narrative: Patient's abdominal series was done today and it showed some atelectasis over the left base but abdomen was otherwise negative Assessment & Plan Assessment Additional comments: Impression: Slow recovery following laparoscopic cholecystectomy Plan Plan: In view of the increasing WBC we shall keep keep him for another day in the hospital to see if there is improvement tomorrow. Procedures Procedures Laparoscopic cholecystectomy
[2024-10-04] MEDS: Magnesium Sulfate 2 GM Ivpb 2 GM/50 ML BAG IV (11:14)
--- NOTE | 2024-10-04 11:38 | ESPR_ITS ---
Documentation for date of: 10/04/24 Subjective Subjective Interval history: 10/04/2024: No acute overnight events to report. Patient seen and examined in hospital bed reports having some abdominal pain, but otherwise denies having any concerning cardiac symptoms such as chest pain, shortness of breath, palpitations, dizziness or bleeding. Patient's white count continues to uptrend slightly likely secondary to reactive process postop day [address] [facility] Riddle, general surgery, is following the patient and agrees that the patient could benefit from an additional stay in the hospital for monitoring of leukocytosis. Will continue the patient on IV antibiotics and monitor for any acute changes in symptoms. Expecting discharge within the next 24 hours. Exam Vital Signs Temp Pulse Resp BP Pulse Ox O2 Del Method O2 Flow Rate 97.2 F 89 20 128/69 95 Nasal Cannula 3 10/04/24 07:49 10/04/24 07:49 10/04/24 07:49 10/04/24 07:49 10/04/24 07:49 10/04/24 07:49 10/04/24 07:49 Narrative Exam Physical Exam: General: Elderly male, distress from abdominal pain, cooperative HEENT: NCAT, No JVD noted. Mucosa dry. Pupils are equal and reactive to light bilaterally Cardiovascular: Normal S1 and S2. Regular rate and rhythm. Respiratory: Lungs are clear to auscultation bilaterally. No wheezing or crackles heard. Abdomen: Soft, diffuse tenderness, distended, ecchymosis noted on left umbilical region, normal bowel sounds. Skin: Warm to touch, dry, no rashes noted Musculoskeletal: No gross injuries. Able to move all 4 extremities. No pitting edema Neuro: Alert and oriented x3. No focal neuro deficits. Psych: Normal affect and mood Objective Labs 10/04/24 05:28 10/04/24 05:28 Labs: Laboratory Results - last 24 hr 10/03/24 10/04/24 10/04/24 11:50 05:21 05:28 WBC 14.0 H 17.5 H RBC 3.14 L 3.00 L Hgb 11.2 L 10.6 L Hct 31.9 L 31.1 L MCV 102 H 104 H MCH 35.7 H 35.3 H MCHC 35.1 34.1 RDW Std Deviation 52.5 H 54.2 H Plt Count 201 D 196 Neut % (Auto) 72 74 Lymph % (Auto) 6 L 6 L Ross % (Auto) 18 H 13 H Eos % (Auto) 0 1 Baso % (Auto) 0 0 Neut # (Auto) 10.1 H 13.0 H Lymph # (Auto) 0.8 L 1.0 Ross # (Auto) 2.5 H 2.3 H Eos # (Auto) 0.0 0.2 Baso # (Auto) 0.0 0.1 Immature Gran # (Auto) 0.54 H 1.04 H Absolute Nucleated RBC 0.00 0.00 Immature Gran % 4 H 6 H Nucleated RBC % 0 0 Sodium 134 L Potassium 3.4 Chloride 101 Carbon Dioxide 26.2 Anion Gap 7 BUN 11 Creatinine 0.8 Estim Creat Clear Calc 97.1 eGFR > 60 BUN/Creatinine Ratio 14 Glucose 116 H Calculated Osmolality 268 L Calcium 7.8 L Corrected Calcium 8.4 L Magnesium 1.4 L Total Bilirubin 0.7 AST 40 H ALT 54 H Alkaline Phosphatase 182 H D Total Protein 5.0 L Albumin 3.3 L Globulin 1.7 L Albumin/Globulin Ratio 1.9 Quality Measures Quality Measures VTE prophylaxis Advance care planning discussed with:: patient Assessment & Plan Assessment Current Active Medications: Generic Name Dose Route Start Last Admin Trade Name Freq PRN Reason Stop Dose Admin Albuterol/Ipratropium 3 ml 10/01/24 06:37 10/03/24 19:51 Albuterol/Ipratropium (Duoneb) Rt Beata 3 Ml Nebu INH 10/31/24 06:59 3 ml Q4HRRT PRN Administration SHORTNESS OF BREATH Dextrose 25 ml 10/01/24 06:28 Dextrose 50%-Water Inj 50 Ml Syringe IV 10/31/24 06:27 Q15MIN PRN BG 50-70 responsive npo pt Dextrose 50 ml 10/01/24 06:28 Dextrose 50%-Water Inj 50 Ml Syringe IV 10/31/24 06:27 Q15MIN PRN BG <50 OR BG <70 & pt unresponsive Donepezil HCl 10 mg 10/02/24 09:00 10/04/24 08:48 Donepezil Hcl 5 Mg Tablet PO 11/01/24 08:59 10 mg DAILY JOHNATHON Administration Glucagon 1 mg 10/01/24 06:28 Glucagon Inj 1 Mg Vial IM Q15MIN PRN BG <70, and no IV access Guaifenesin/Dextromethorphan 1 each 10/04/24 05:01 10/04/24 05:21 Guaifenesin/Dm Tablet PO 11/03/24 05:00 1 each Q4HR PRN Administration COUGH Hydromorphone HCl 0.5 mg 10/01/24 17:36 10/04/24 08:47 Hydromorphone Inj 2 Mg/Ml Vial IVP 10/06/24 17:35 0.5 mg Q4HR PRN Administration severe pain 7-10 Hydroxyzine HCl 10 mg 10/02/24 06:23 Hydroxyzine Hcl 10 Mg Tablet PO 11/01/24 06:22 Q8H PRN anxiety Lactated Ringer's 1,000 mls @ 75 mls/hr 10/01/24 03:26 10/03/24 22:51 Lactated Ringers IV 10/31/24 03:25 75 mls/hr .[id number] JOHNATHON Administration Ciprofloxacin/Dextrose 400 mg in 200 mls @ 200 mls/hr 10/01/24 21:00 10/04/24 08:48 Cipro Ivpb IV 10/08/24 20:59 200 mls/hr Q12HR JOHNATHON Administration Metronidazole 500 mg in 100 mls @ 200 mls/hr 10/01/24 14:00 10/04/24 05:11 Flagyl 500 Mg Iv IV 10/08/24 13:59 200 mls/hr Q8HR JOHNATHON Administration Magnesium Sulfate 2 gm in 50 mls @ 25 mls/hr 10/04/24 10:05 10/04/24 11:14 Magnesium Sulfate Ivpb IV 10/04/24 12:04 25 mls/hr X1 ONE Administration Insulin Human Lispro 0 unit 10/03/24 07:30 10/04/24 07:52 Insulin Lispro (Admelog) 1 Unit/0.01 Ml Unit SC 11/02/24 07:29 Not Given AC [facility] Protocol Ketorolac Tromethamine 30 mg 10/02/24 18:05 10/03/24 09:03 Ketorolac Inj 30 Mg/Ml Vial IVP 10/07/24 18:04 30 mg Q6HR PRN Administration PAIN Lactobacillus Rhamnosus 1 cap 10/02/24 11:00 10/04/24 08:47 Lactobacillus Rhamnosus 1 Cap PO 11/01/24 10:59 1 cap BID JOHNATHON Administration Levetiracetam 500 mg 10/02/24 06:30 10/04/24 08:48 Levetiracetam 250 Mg Tablet PO 11/01/24 06:29 500 mg Q12HR JOHNATHON Administration Ondansetron HCl 4 mg 10/01/24 07:14 10/01/24 14:30 Ondansetron Inj 2 Mg/Ml Inj 2 Ml IV 10/31/24 07:13 4 mg Q6HR PRN Administration NAUSEA OR VOMITING Protocol Pharmacy Consult 1 each 10/01/24 04:11 Pharmacy Renal Dose Adjustment 1 Ea XX 10/31/24 04:10 PRN PRN CONSULT Sumatriptan Succinate 100 mg 10/02/24 06:23 Sumatriptan 25 Mg Tablet PO 11/01/24 06:22 DAILY PRN migraine headache Plan 69 yr M non-Hodgkin lymphoma completed 7 sessions of chemotherapy last was in November 2023, on 3L home oxygen, hx siezures, HTN, GERD, COPD, HLD, new diagnosed T2DM who is presenting to ED due to abdominal pain and intractable vomiting since past few days. Patient to be admitted for sepsis 2/2 acute cholecystitis and pancolitis with ОЛЕГ. #Acute calculus cholecystitis #Pancolitis #Intractable nausea and vomiting #Leukocytosis Patient presenting with 4 days of abdominal pain associated with nausea/vomiting/diarrhea In ED, blood pressure 110/73, tachycardic 104, afebrile, saturating 94% on 4 L O2. SIRS 2/4, qSOFA 1. Lactic acid 1.0, Pro-Arvind slightly elevated 0.55. Liver enzymes unremarkable. CT abdomen pelvis significant for cholecystitis and pancolitis. Sepsis due to cholecystitis with acute sepsis-related organ dysfunction as evidence by ОЛЕГ and elevated WBC (initially 29 now downtrending to 24.8) Liver ultrasound confirms acute calculus cholecystitis Stool studies including calprotectin, C. difficile Stool WBC moderately positive Blood culture NG in 24 hours HIDA scan show abnormal study, cystic duct obstruction Urine culture no growth As noted above in physical exam, patient has left-sided ecchymosis near the umbilical region secondary to likely trocar insertion during lap abeba Leukocytosis likely secondary to reactive process status postop day 2 from lap abeba; moreover, patient denies having any shortness of breath, dysuria or any other potential sources of infection. Plan: General Surgery consulted, appreciate recommendations Continue IV ciprofloxacin and IV Flagyl Stool culture and O&P pending #Acute kidney injury on CKD stage II, improving Most likely pre renal in setting of poor oral intake and sepsis. Cr 1.7 (baseline appears to be around 1.2), BUN 27 Ultrasound shows bilateral renal cortical thinning. No hydronephrosis or renal calculi Plan: Avoid nephrotoxic agents Renally dose medications when applicable Follow-up with morning labs #Non insulin dependent type 2 diabetes #Prediabetes Newly diagnosed about one month ago. On admission initial glucose 140. Last A1c 5.8 on 08/19. Patient takes Rybelsus for diabetes at home. A1c of 6.1 Plan: Sliding scale insulin #Hypertension #Hyperlipidemia #History of seizures #Hx Non Hodgkin Lymphoma on chemo #COPD Chronic medical conditions, not pertinent to the following presentation Plan: Continue home medications Hospital Management: Dispo: Cholecystitis, colitis Lines: PIV FEN: Low-fat diet GI prophylaxis: Not needed DVT prophylaxis: Subcu heparin CODE STATUS: Full code Patient seen and assessed with attending Dr. Strong and senior resident Dr. Zackary Hernandez, PGY-1 Attending Provider Attestation/Addendum 69-year-old male with history of non-Hodgkin's lymphoma, COPD on 3 L supplemental oxygen presented with nausea and vomiting found to have sepsis secondary to acute cholecystitis and acute kidney injury. As of now, patient underwent cholecystectomy however continues to have increasing WBC for which plan to monitor 1 more day on IV antibiotic therapy. Appreciate general surgery input and they are in agreement with her plan. Anticipate discharge in the next 24-48 hours once leukocytosis resolved. I have also personally examined the patient with medicine team and went over assessment and plan with medical team including manufacturing engineering intern and resident physician.
[2024-10-04] MEDS: RINGERS LACTATED 1000 ML 1,000 ML 75 ML IV (13:57)
[2024-10-05] VITALS (7 sets, daily range): BP systolic 114–122; BP diastolic 66–91; PULSE 82–99; RESP 18–20; TEMP 36.1–37.1; O2SAT 93–96; BMI 30.4
[2024-10-05] MEDS: ALBUTEROL/IPRATROPIUM (Duoneb) RT SOL 3 ML NEBU INH ×2 (04:29→09:41)
--- NOTE | 2024-10-05 04:38 | XR_ITS ---
Examination: AP chest single view Technique one AP portable upright chest single view Exam date and time: October 05, 2024 0449 hours INDICATIONS: Shortness of breath today. FINDINGS: Bibasilar pneumonia Normal heart size Mild vascular congestion. Right Port-A-Cath tip satisfactory position IMPRESSION: Significant bibasilar pneumonia
[2024-10-05] MEDS: RINGERS LACTATED 1000 ML 1,000 ML 75 ML IV (04:54)
[2024-10-05] MEDS: metroNIDAZOLE/NS 500 MG IVPB 500 MG/100 ML BAG 200 MG IV (05:01)
[2024-10-05 06:17] LABS: Basophils # (Auto) 0.1 Thou/mm3 (0.0-0.2); Basophils % (Auto) 1 % (0-2.5); Eosinophils # (Auto) 0.3 Thou/mm3 (0.0-0.5); Eosinophils % (Auto) 2 % (0-10); Hematocrit 30.5 % (41.0-53.0); Hemoglobin 10.5 g/dL (13.5-16.0); Immature Granulocytes % (Auto) 12 % (0-0); Lymphocytes # (Auto) 1.3 Thou/mm3 (1.0-4.8); Lymphocytes % (Auto) 7 % (10-50); Mean Corpuscular HGB Conc 34.4 g/dl (31.0-37.0); Mean Corpuscular Hemoglobin 35.1 pg (25.0-35.0); Mean Corpuscular Volume 102 fL (80-100); Monocytes # (Auto) 2.1 Thou/mm3 (0.0-0.8); Monocytes % (Auto) 12 % (0-12); Neutrophils # (Auto) 11.7 Thou/mm3 (1.8-7.7); Neutrophils % (Auto) 66 % (37-80); Nucleated Red Blood Cell % 0 /100 WBC (0); Platelet Count 281 Thou/mm3 (140-440); RDW Standard Deviation 52.9 fL (35.1-43.9); Red Blood Count 2.99 Miln/mm3 (4.50-5.90); White Blood Count 17.7 Thou/mm3 (3.8-10.6)
[2024-10-05 06:23] LABS: Alanine Aminotransferase 41 U/L (10-49); Albumin, Serum 3.3 gm/dL (3.4-4.8); Albumin/Globulin Ratio 1.7 (1.2-2.2); Alkaline Phosphatase 173 U/L (46-116); Anion Gap 7 (7-16); Aspartate Amino Transferase 30 U/L (0-34); BUN/Creatinine Ratio 13 Ratio (12-20); Bilirubin,Total 0.6 mg/dL (0.3-1.2); Blood Urea Nitrogen 10 mg/dL (9-23); Calcium 7.9 mg/dL (8.3-10.6); Calcium (Corrected) 8.5 mg/dL (8.5-10.1); Carbon Dioxide 26.3 mMol/L (20.0-31.0); Chloride 104 mMol/L (98-107); Creatinine (Component) 0.8 mg/dL (0.6-1.3); Estimated Creatinine Clearance 97.1 mL/min (>60); Globulin 1.9 gm/dL (2.3-3.5); Glucose 116 mg/dL (74-106); Osmolality,Calculated 273 (275-295); Potassium 3.5 mMol/L (3.4-5.1); Sodium 137 mMol/L (136-145); Total Protein 5.2 gm/dL (5.7-8.2); eGFR > 60 See Note
--- NOTE | 2024-10-05 08:00 | PC.NURSE ---
dr. frausto at bedside md stated to dc fluids as patient is on regular diet. provider communicated with patient
[2024-10-05] MEDS: levETIRAcetam 250 MG TABLET 500 MG PO (08:37)
[2024-10-05] MEDS: DONEPEZIL HCL 5 MG TABLET 10 MG PO (08:37)
[2024-10-05] MEDS: LACTOBACILLUS RHAMNOSUS 1 CAP PO (08:38)
[2024-10-05] MEDS: CIPROFLOXACIN/D5w 400 MG IVPB 400 MG/200 ML BAG 200 MG IV (08:38)
[2024-10-05 12:41] LABS: Path Review Blood Smear Sent to Pathologist
--- NOTE | 2024-10-05 13:11 | PD.HHDS ---
Planned Discharge Date 10/05/24 DS: Providers Provider Date of admission: 10/01/24 05:27 Primary care physician: Sydni Rodriguez Admitting Provider: North Hicks MD Attending Provider on Admission: Debi Frederick DO Consults: 10/01/24 14:08 Consult to General Surgery Routine Comment: acute calculous cholecystitis Consulting Provider: Norman Thacker 10/03/24 09:22 Referral Physical Therapy Routine Comment: Physician Instructions: Instructions: For ambulation Attending Provider on DC: Debi Frederick DO Discharging Provider: Debi Frederick DO Diagnosis Problem List Completed Was Problem List Reviewed/Reconciled?: Yes Discharge Assessment Assessment: #Acute cholecystitis, s/p laprascopic cholecystectomy #Pancolitis #Intractable nausea and vomiting #Acute kidney injury on CKD stage II, improving #Non insulin dependent type 2 diabetes #Prediabetes #Hypertension #Hyperlipidemia #History of seizures #Hx Non Hodgkin Lymphoma s/p chemo #COPD Patient is a 69-year-old male with non-Hodgkin lymphoma status post chemo close chronic respiratory failure on 3 L home O2, seizures, hypertension, GERD, COPD, hyperlipidemia and type 2 diabetes mellitus who presented to the ED with abdominal pain, intractable nausea and vomiting. Patient reported decreased appetite and only able to tolerate water. He was unable to eat anything due to persistent nausea and vomiting. Patient reported 8 out of 10 abdominal pain with no relieving factors. Upon evaluation in the ED, patient was found to have blood pressure 110/73, tachycardic 104, afebrile, saturating 94% on 4 L O2. CBC shows leukocytosis 29, mild hyponatremia sodium 130, potassium 3.7, creatinine 1.7, glucose 140. Lactic acid 1.0, mag 1.4, Pro-Arvind slightly elevated 0.55. Liver enzymes unremarkable. Mildly elevated ALP. Lipase was negative. CT abdomen pelvis shows significant cholecystitis and pancolitis. EKG with sinus rhythm with a QTc of 382. Patient is admitted for sepsis 2/2 acute cholecystitis and pancolitis. Patient was started on IV levaquin and flagyl. gen/surg was consulted and patient underwent laparascopic cholecystectomy. Patient was found to have extensive inflammation and distended gallbladder. Patient tolerated procedure well. Patient was monitored overnight due to leukocytosis. However, patient has been afebrile, tolerating PO diet. He has mild tenderness to palpation of his abdomen otherwise. Ecchymosis noted in LLQ, which appears to be dependent as patient prefers to lay on his left side. Leukocytosis remains unchanged. However, patient is anxious to go home. Case discussed with surgeon, patient is cleared for discharge home and to continue with oral antibiotics. He is to follow up with surgeon next week and PCP in 1 week. Hospital Course - Hospitalist Time Spent with Patient Time attestation: Total time spent providing and/or coordinating discharge services: 35min Time spent: Greater than 30 minutes Discharge Results Labs Diagrams: 10/05/24 05:05 10/05/24 05:05 Labs: Short CBC 10/05/24 Range/Units 05:05 WBC 17.7 H (3.8-10.6) Thou/mm3 Hgb 10.5 L (13.5-16.0) g/dL Hct 30.5 L (41.0-53.0) % Plt Count 281 D (140-440) Thou/mm3 BMP 10/05/24 05:05 Sodium 137 Potassium 3.5 Chloride 104 Carbon Dioxide 26.3 BUN 10 Creatinine 0.8 Glucose 116 H Calcium 7.9 L Liver Function 10/05/24 Range/Units 05:05 Total Bilirubin 0.6 (0.3-1.2) mg/dL AST 30 (0-34) U/L ALT 41 (10-49) U/L Alkaline Phosphatase 173 H (46-116) U/L Albumin 3.3 L (3.4-4.8) gm/dL Exam Vital Signs Temp Pulse Resp BP Pulse Ox O2 Del Method O2 Flow Rate 97.5 F 96 18 120/67 94 L Nasal Cannula 2 10/05/24 08:00 10/05/24 09:41 10/05/24 09:41 10/05/24 08:00 10/05/24 09:41 10/05/24 08:00 10/05/24 09:41 Narrative Gen: No acute distress HEENT: NCAT, PERRLOU, Sclera anicteric, conjunctiva noninjected, oral mucosa moist without erythema Neck: Supple, full range of motion, no LAD CV: RRR, no murmurs, rubs or gallops Resp: CTAB/L, no wheezing, rhonchi or rales GI: abdomen soft, protuberant, incisions appear CDI, ecchymosis noted in LLQ, bowel sounds noted, mild tenderness to palpation, no guarding or rebound tenderness, no organomegaly Skin: clean, dry, no rashes, lesions or ecchymosis Ext: no clubbing, cyanosis, or edema Neuro: A&O x3, CN II- XII intact b/l, no focal neurological deficits Discharge Plan Plan Patient Disposition: HOME (Self Care) Patient condition on transfer: Stable Care Plan Goals: Please take acetaminophen 650 mg tablet by mouth every 8 hours as needed for pain F/u with surgeon nect week 10/10/24 Follow-up with your PCP within 1 week If your symptoms worsen or if you develop new fever/chills, chest pain, shortness of breath, diarrhea or abdominal pain - please come back to the ED immediately. Prescriptions/Referrals Prescriptions/Med Rec: New acetaminophen 650 mg tablet extended release 650 mg PO Q8H MDD 2000mg acetaminophen PRN (Reason: pain) 7 Days Qty: 20 0RF ciprofloxacin HCl [Cipro] 500 mg tablet 500 mg PO BID 6 Days Qty: 12 0RF metronidazole 500 mg tablet 500 mg PO Q8H 6 Days Qty: 18 0RF Continued atorvastatin 40 mg tablet 40 mg PO DAILY Patient Comments: TAKE 1 TABLET BY MOUTH EVERY DAY donepezil 10 mg tablet 10 mg PO DAILY Patient Comments: TAKE 1 TABLET BY MOUTH EVERY DAY IN THE EVENING FOR MEMORY LOSS omeprazole 40 mg capsule,delayed release(DR/EC) 40 mg PO DAILY Patient Comments: TAKE 1 CAPSULE BY MOUTH EVERY DAY BEFORE A MEAL lisinopril 30 mg tablet 30 mg PO DAILY Patient Comments: TAKE 1 TABLET BY MOUTH ONCE DAILY fenofibrate nanocrystallized 145 mg tablet 145 mg PO QDAY Patient Comments: TAKE 1 TABLET BY MOUTH EVERY DAY pantoprazole 40 mg tablet,delayed release (DR/EC) 40 mg PO DAILY Patient Comments: TAKE 1 TABLET BY MOUTH EVERY DAY sumatriptan succinate 100 mg tablet 100 mg PO DAILY PRN (Reason: migraine headache) Patient Comments: TAKE 1 TABLET BY MOUTH AT ONSET OF MIGRAINE. MAY REPEAT AFTER 2 HOURS IF HEADACHE CONTINUES. MAX 2 PER DAY hydroxyzine HCl 10 mg tablet 10 mg PO Q8H PRN (Reason: anxiety ) Patient Comments: TAKE 1 TABLET BY MOUTH EVERY 8 HOURS NEEDED FOR ANXIETY fexofenadine [Allergy Relief (fexofenadine)] 180 mg tablet 180 mg PO Q24H PRN (Reason: allergies) Patient Comments: TAKE 1 TABLET BY MOUTH EVERY DAY NEEDED FOR SEASONAL ALLERGIES lisinopril-hydrochlorothiazide 20-25 mg tablet 1 tab PO DAILY Patient Comments: TAKE 1 TABLET BY MOUTH EVERY DAY famotidine 40 mg tablet 40 mg PO DAILY Patient Comments: TAKE 1 TABLET BY MOUTH EVERY DAY AT BEDTIME levetiracetam 500 mg tablet 500 mg PO Q12H Patient Comments: TAKE 1 TABLET BY MOUTH TWICE DAILY Rybelsus 3 mg tablet 3 mg PO QDAY rosuvastatin 20 mg tablet 20 mg PO HS Patient Comments: TAKE 1 TABLET BY MOUTH EVERY NIGHT AT BEDTIME Discontinued cetirizine 10 mg tablet 10 mg PO DAILY Patient Comments: TAKE 1 TABLET BY MOUTH EVERY DAY NEEDED FOR SEASONAL ALLERGIES naproxen 500 mg tablet 500 mg PO DAILY Patient Comments: GENERIC FOR NAPROSYN... TAKE 1 TABLET BY MOUTH EVERY DAY WITH FOOD Referrals: Sydni Rodriguez [Primary Care Provider] - Patient/Caregiver Discharge Instructions Other Discharge Diet Instructions: 1. Initially, limit fat intake to 30% of daily calories and avoid foods that are high in saturated fat. This is because the gallbladder stores bile, which helps digest fats, and its removal can make digesting fats more challenging. 2. Incorporate lean protein sources like skinless poultry (chicken/turkey), fish, tofu, beans, and lentils. 3. Instead of three large meals, consider eating four to six smaller meals to aid digestion. 4. Gradually increase fiber intake, starting with soluble fiber sources like oatmeal, barley, and fruits, as this can help with digestion and bowel regularity. 5. Limit or avoid high-fat foods, fried foods, spicy foods, caffeinated drinks, alcoholic beverages, and foods that cause digestive discomfort before the surgery. Education Materials: Preventing Surgical Site Infections Print Language: Luxembourgish Stand Alone Forms: Shirley Award Info., Patient Portal Info Letter Discharge Order Discharge Orders: Discharge (Routine); Ordered 10/05/24 Ordered By: Debi Frederick Quality Discharge Quality Measures VTE prophylaxis
[2024-10-08 07:03] LABS: Calprotectin, Stool* 3890 mcg/g
== END 2024-10-05 14:35 | disposition home or self-care (01) | DRG 854 ==
LOC: SERX 02:24 → SERHOLD 05:44 → S3SX 06:40
PROVIDERS: Internal Medicine; Physician Assistant; Student in an Organized Health Care Education/Training Program; Surgery; Admitting Provider Internal Medicine; Emergency Provider Emergency Medicine; PCP Internal Medicine; Visit Provider Internal Medicine
PROC: 0FT44ZZ Resection of Gallbladder, Percutaneous Endoscopic Approach (ICD-10-PCS; CPT 47562; principal; 2024-10-02 12:30)
DX: A41.9 Sepsis, unspecified organism (principal); E87.1 Hypo-osmolality and hyponatremia; N17.9 Acute kidney failure, unspecified; K81.0 Acute cholecystitis; K80.01 Calculus of gallbladder with acute cholecystitis with obstruction; J96.10 Chronic respiratory failure, unspecified whether with hypoxia or hypercapnia; K91.89 Other postprocedural complications and disorders of digestive system; K56.7 Ileus, unspecified; K21.9 Gastro-esophageal reflux disease without esophagitis; G89.29 Other chronic pain; E78.5 Hyperlipidemia, unspecified; K21.00 Gastro-esophageal reflux disease with esophagitis, without bleeding; E86.0 Dehydration; R63.4 Abnormal weight loss; Z87.891 Personal history of nicotine dependence; Z88.0 Allergy status to penicillin; Z68.30 Body mass index [BMI] 30.0-30.9, adult; N18.9 Chronic kidney disease, unspecified; E11.22 Type 2 diabetes mellitus with diabetic chronic kidney disease; I12.9 Hypertensive chronic kidney disease with stage 1 through stage 4 chronic kidney disease, or unspecified chronic kidney disease; J44.9 Chronic obstructive pulmonary disease, unspecified; K44.9 Diaphragmatic hernia without obstruction or gangrene; K52.9 Noninfective gastroenteritis and colitis, unspecified; E83.42 Hypomagnesemia; G40.909 Epilepsy, unspecified, not intractable, without status epilepticus; N18.2 Chronic kidney disease, stage 2 (mild); Z85.72 Personal history of non-Hodgkin lymphomas; R65.20 Severe sepsis without septic shock; Z99.81 Dependence on supplemental oxygen; Z79.4 Long term (current) use of insulin; Z79.84 Long term (current) use of oral hypoglycemic drugs; Z92.21 Personal history of antineoplastic chemotherapy
CPT/HCPCS: 36415; 71045; 74022; 74176; 76705; 76770; 78227; 80053; 81001; 82043; 82150; 82436; 82570; 83036; 83605; 83690; 83735; 83993; 84100; 84133; 84145; 84300; 84484; 85025; 85610; 85730; 87015; 87040; 87045; 87046; 87086; 87177; 87205; 87209; 87493; 87899; 93005; 94640; 96360; 96361; 96374; 96375; 97162; 99285; A4217; A4649; A9270; A9537; J0744; J1171; J1644; J1885; J1956; J2250; J2371; J2405; J2470; J2704; J2765; J3010; J3475; J3490; J7120; J7999; J1836

== ENCOUNTER → 2024-10-23 | Outpatient (CLI) | payer MEDICARE, MEDICAID, SELFPAY ==
--- NOTE | 2024-10-23 15:49 | XR_ITS ---
Examination: PA lateral chest 2 views TECHNIQUE: upright PA lateral chest 2 views Date and time: October 23, 2024 1552 hours INDICATION: Shortness of breath today. FINDINGS: Normal heart size Right internal jugular Port-A-Cath tip satisfactory position Suspicious for mild pneumonia left base No pulmonary edema IMPRESSION: Suspicious for mild pneumonia left base
== END | disposition home or self-care (01) ==
PROVIDERS: PCP Family Medicine; Referring Provider Family Medicine; Visit Provider Family Medicine
DX: R91.8 Other nonspecific abnormal finding of lung field (principal)
CPT/HCPCS: 71046